=== PATIENT | female | born 1995 | race Caucasian/White ===

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

== ENCOUNTER 2017-03-02 00:07 | Emergency (ER) | payer OTHER ==
[2017-03-02 00:14] VITALS: BP 130/82; PULSE 89; RESP 18; TEMP 98.4
--- NOTE | 2017-03-02 00:26 | ED ---
General Adult HPI - General Chief complaint: Recheck/Abnormal Lab/Rx Stated complaint: Test Time Seen by Provider: 03/02/17 00:15 Source: patient, RN notes reviewed Mode of arrival: ambulatory Limitations: no limitations - History of Present Illness Initial comments: Patient 21-year-old female who presents emergency room today with chief complaint of possible . Patient admits that she's been having increased urinary frequency. Does admit some pressure type feeling in her lower abdomen. States is not painful. Does admit that she's had some clear vaginal discharge. Patient denies any bleeding. Denies any other associated symptoms or complaints. Patient denies any recent fever, chills, shortness of breath, chest pain, back pain, abdominal pain, nausea or vomiting, numbness or tingling, hematuria, constipation or diarrhea, headaches or visual changes, or any other complaints. - Related Data Home Medications Medication Instructions Recorded Confirmed Cetirizine HCl [Zyrtec] 10 mg PO DAILY 01/19/15 09/21/16 Albuterol Inhaler [Ventolin Hfa 1 - 2 puff INHALATION RT-Q6H PRN 09/20/16 Inhaler] Lisdexamfetamine Dimesylate 30 mg PO QAM 09/20/16 09/21/16 [Vyvanse] [place]-Linyah 1 tab PO DAILY 09/20/16 09/21/16 Previous Rx's Medication Instructions Recorded DULoxetine HCL [Cymbalta] 60 mg PO DAILY #30 capsule. 09/24/16 Nicotine 7Mg/24Hr Patch [Habitrol] 1 patch TRANSDERM DAILY #14 patch 09/24/16 OXcarbazepine [Trileptal] 300 mg PO BID #60 tab 09/24/16 Nitrofurantoin Monohyd/M-Cryst 100 mg PO Q12HR #14 cap 03/02/17 [Macrobid] Allergies Allergy/AdvReac Type Severity Reaction Status Date / Time aspirin Allergy Unknown Verified 03/02/17 00:13 Review of Systems ROS Statement: Those systems with pertinent positive or pertinent negative responses have been documented in the HPI. ROS Other: All systems not noted in ROS Statement are negative. Past Medical History Past Medical History: No Reported History, Asthma History of Any Multi-Drug Resistant Organisms: None Reported Past Surgical History: No Surgical Hx Reported Additional Past Surgical History / Comment(s): SPIDER BITE/ABSCESS DRAINED Past Psychological History: ADD/ADHD, Anxiety, Bipolar, Depression Smoking Status: Current every day smoker Past Alcohol Use History: Rare Past Drug Use History: Marijuana General Exam - General Exam Comments Initial Comments: General: The patient is awake and alert, in no distress, and does not appear acutely ill. Eye: Pupils are equal, round and reactive to light, extra-ocular movements are intact. No nystagmus. There is normal conjunctiva bilaterally. No signs of icterus. Ears, nose, mouth and throat: There are moist mucous membranes and no oral lesions. Neck: The neck is supple, there is no tenderness or JVD. Cardiovascular: There is a regular rate and rhythm. No murmur, rub or gallop is appreciated. Respiratory: Lungs are clear to auscultation, respirations are non-labored, breath sounds are equal. No wheezes, stridor, rales, or rhonchi. Gastrointestinal: Soft, non-distended, non-tender abdomen without masses or organomegaly noted. There is no rebound or guarding present. No CVA tenderness. Bowel sounds are unremarkable. Musculoskeletal: Normal ROM, no tenderness. Strength 5/5. Sensation intact. Pulses equal bilaterally 2+. Neurological: A&O x 3. CN II-XII intact, There are no obvious motor or sensory deficits. Coordination appears grossly intact. Speech is normal. Skin: Skin is warm and dry and no rashes or lesions are noted. Psychiatric: Cooperative, appropriate mood & affect, normal judgment. Limitations: no limitations Course Vital Signs 03/02/17 00:10 Temperature 98.4 F Pulse Rate 89 Respiratory 18 Rate Blood Pressure 130/82 O2 Sat by Pulse 99 Oximetry Medical Decision Making - Medical Decision Making Patient's urinalysis reviewed negative test. Patient's UA does show evidence for infection. She is symptomatic increased urinary frequency. Results were discussed with the patient. Culture is pending. Will be started on antibiotic of Macrobid. Advised to follow-up family doctor over the next 2 days if symptoms are not improved or return here to emergency room if any symptoms increase or worsen. Patient states understanding and is in agreement. - Lab Data Lab Results 03/02/17 03/02/17 Range/Units 00:14 00:14 Urine Color Colorless Urine Appearance Cloudy H (Clear) Urine pH 7.0 (5.0-8.0) Ur Specific Bridger 1.004 (1.001-1.035) Urine Protein Negative (Negative) Urine Glucose (UA) Negative (Negative) Urine Ketones Negative (Negative) Urine Blood Negative (Negative) Urine Nitrite Negative (Negative) Urine Bilirubin Negative (Negative) Urine Urobilinogen <2.0 (<2.0) mg/dL Ur Leukocyte Esterase Small H (Negative) Urine RBC 1 (0-5) /hpf Urine WBC 10 H (0-5) /hpf Ur Squamous Epith Cells 6 H (0-4) /hpf Amorphous Sediment Occasional H (None) /hpf Urine Bacteria Rare H (None) /hpf Urine HCG, Qual Not Detected (Not Detectd) Disposition Clinical Impression: UTI (urinary tract infection) Disposition: HOME SELF-CARE Condition: Good Instructions: Urinary Tract Infection in Women (ED) Additional Instructions: Please use medication as discussed. Please follow-up with family doctor in the next 2 days of symptoms have not improved. Please return to emergency room if the symptoms increase or worsen or for any other concerns. Prescriptions: Nitrofurantoin Monohyd/M-Cryst [Macrobid] 100 mg PO Q12HR #14 cap Referrals: Luciano Brewster MD [Primary Care Provider] - 1-2 days Time of Disposition: 01:01
[2017-03-02 00:44] LABS: Amorphous Sediment,Urine Occasional /hpf; Appearance,Urine Cloudy (Clear); Bacteria,Urine Rare /hpf; Bilirubin,Urine Negative (Negative); Glucose,Urine (UA) Negative (Negative); Ketones,Urine Negative (Negative); Leukocyte Esterase,Urine Small (Negative); Nitrite,Urine Negative (Negative); Particle Count 4248; Protein,Urine Negative (Negative); RBC,Urine 1 /hpf (0-5); Specific Gravity,Urine 1.004 (1.001-1.035); Squamous Epithelial Cell,Urine 6 /hpf (0-4); UA Billing (MACRO vs. MICRO) MICRO; Urobilinogen,Urine <2.0 mg/dL (<2.0); WBC,Urine 10 /hpf (0-5)
[2017-03-02] MEDS ORDERED: NITROFURANTOIN MONOHYD/M-CRYST 100 MG CAP PO STA (00:58)
== END 2017-03-02 01:05 | disposition home or self-care (01) ==
LOC: EC 00:07
DX: N39.0 Urinary tract infection, site not specified (principal); Z32.02 Encounter for pregnancy test, result negative; F90.9 Attention-deficit hyperactivity disorder, unspecified type; F17.200 Nicotine dependence, unspecified, uncomplicated; Z79.899 Other long term (current) drug therapy; Z79.3 Long term (current) use of hormonal contraceptives; Z88.6 Allergy status to analgesic agent
CPT/HCPCS: 81001; 81025; 87086; 99281

== ENCOUNTER → 2017-07-25 | Outpatient (CLI) | payer OTHER ==
--- NOTE | 2017-07-25 15:20 | XR ---
EXAMINATION TYPE: XR thoracic spine complete DATE OF EXAM: 07/25/2017 COMPARISON: NONE HISTORY: Back pain Alignment is anatomic. There is no compression deformities. Vertebral body height and disc interspa gracie are maintained. Slight curvature the spine. IMPRESSION: 1. No acute abnormality.
== END | disposition home or self-care (01) ==
LOC: RADXRMAIN 14:48
PROVIDERS: ATTEND Family Medicine
DX: M54.6 Pain in thoracic spine (principal)
CPT/HCPCS: 72072

== ENCOUNTER 2017-09-30 11:03 | Emergency (ER) | payer OTHER ==
--- NOTE | 2017-09-30 12:16 | ED ---
Fall HPI - General Chief Complaint: Fall Stated Complaint: left knee injury from fall, back pain Time Seen by Provider: 09/30/17 11:59 Source: patient, RN notes reviewed, old records reviewed Mode of arrival: ambulatory - History of Present Illness Initial Comments: This patient is a 22-year-old feel presents emergency room today chief complaint of left knee pain and lower back pain after she fell going down the stairs while going to work today. She reports she initially fell off her bed and hurt her lower back. She reports she slipped. She states that when she was rushing to get to work she slipped down approximately 2 stairs and hit her left knee. She's had previous surgery on this knee before. She also complains of having some acid reflux pain. She states that she feels mildly nauseated has a burning sensation. The patient arrives and examined her she was drinking a large coffee. I discussed with her the cough is in a more contributed to having acid reflux. She denies a specific abdominal pain, chest pain, shortness of breath, vomiting episodes, changes in bowel habits, numbness or tingling in her legs, headache. - Related Data Home Medications Medication Instructions Recorded Confirmed Cetirizine HCl [Zyrtec] 10 mg PO DAILY 01/19/15 09/21/16 Albuterol Inhaler [Ventolin Hfa 1 - 2 puff INHALATION RT-Q6H PRN 09/20/16 Inhaler] Lisdexamfetamine Dimesylate 30 mg PO QAM 09/20/16 09/21/16 [Vyvanse] [place]-Linyah 1 tab PO DAILY 09/20/16 09/21/16 Previous Rx's Medication Instructions Recorded DULoxetine HCL [Cymbalta] 60 mg PO DAILY #30 capsule. 09/24/16 Nicotine 7Mg/24Hr Patch [Habitrol] 1 patch TRANSDERM DAILY #14 patch 09/24/16 OXcarbazepine [Trileptal] 300 mg PO BID #60 tab 09/24/16 Nitrofurantoin Monohyd/M-Cryst 100 mg PO Q12HR #14 cap 03/02/17 [Macrobid] Naproxen 500 mg PO BID #20 tablet 09/30/17 Omeprazole 20 mg PO BID #20 tablet. 09/30/17 Allergies Allergy/AdvReac Type Severity Reaction Status Date / Time aspirin Allergy Unknown Verified 09/30/17 11:48 Review of Systems ROS Statement: Those systems with pertinent positive or pertinent negative responses have been documented in the HPI. ROS Other: All systems not noted in ROS Statement are negative. Past Medical History Past Medical History: Asthma, GERD/Reflux History of Any Multi-Drug Resistant Organisms: None Reported Past Surgical History: No Surgical Hx Reported, Orthopedic Surgery Additional Past Surgical History / Comment(s): SPIDER BITE/ABSCESS DRAINED, left leg lamonte,pins Past Psychological History: ADD/ADHD, Anxiety, Bipolar, Depression Smoking Status: Current every day smoker Past Alcohol Use History: Rare Past Drug Use History: Marijuana General Exam - General Exam Comments Initial Comments: This patient is a 22-year-old female. No distress. Limitations: no limitations General appearance: alert, in no apparent distress Head exam: Present: atraumatic, normocephalic, normal inspection Eye exam: Present: normal appearance, PERRL, EOMI. Absent: scleral icterus, conjunctival injection, periorbital swelling ENT exam: Present: normal exam Neck exam: Present: normal inspection. Absent: tenderness, meningismus, lymphadenopathy Respiratory exam: Present: normal lung sounds bilaterally. Absent: respiratory distress, wheezes, rales, rhonchi, stridor Cardiovascular Exam: Present: regular rate, normal rhythm, normal heart sounds. Absent: systolic murmur, diastolic murmur, rubs, gallop, clicks GI/Abdominal exam: Present: soft, normal bowel sounds. Absent: distended, tenderness, guarding, rebound, rigid Extremities exam: Present: normal inspection, full ROM, normal capillary refill. Absent: tenderness, pedal edema, joint swelling, calf tenderness Left Upper Leg exam: Present: normal inspection, full ROM Knee exam: Present: normal inspection (Patient has well-healed previous scars from previous surgery.), full ROM Lower Leg exam: Present: normal inspection, full ROM Ankle exam: Present: normal inspection, full ROM Foot/Toe exam: Present: normal inspection, full ROM Neurovascular tendon exam: Present: no vascular compromise Gait: observed and normal Back exam: Present: normal inspection Neurological exam: Present: alert, oriented X3, CN II-XII intact Psychiatric exam: Present: normal affect Skin exam: Present: warm, dry, intact, normal color. Absent: rash Course Vital Signs 09/30/17 11:44 Temperature 98.0 F Pulse Rate 91 Respiratory 18 Rate Blood Pressure 109/72 O2 Sat by Pulse 99 Oximetry Medical Decision Making - Medical Decision Making 22-year-old female presents emergency department today chief complaint of left knee pain after falls off some minor lower back pain. Just complains of acid reflux-like symptoms for the past week. She did arrive drinking coffee. Discussed that supportive and drink with as reflux. She has full range motion of the knee. Patella appears normal alignment and full range of motion. No trauma or bruising or dislocations. At this time patient's x-ray show evidence of a previous surgery within the femur. There is some minor high riding patella to correlate for patellar tendon injury. It does appear to be intact at this time. Patient is given an Clem wrap, discharged with crutches. Also treated with omeprazole for GERD. I discussed that she needs to follow-up with orthopedic in a primary care provider. All questions were answered and return parameters were discussed. - Radiology Data Radiology results: report reviewed There is no acute fracture dislocation of the left knee. Note is made of patella altered. Evaluation is recommended for patellar quadriceps injury with this knee pain. Disposition Clinical Impression: GERD (gastroesophageal reflux disease), Fall, Back pain, Left knee sprain Disposition: HOME SELF-CARE Condition: Good Instructions: Gastroesophageal Reflux Disease (ED), Diet for Stomach Ulcers and Gastritis (ED), Knee Sprain (ED) Additional Instructions: Patient advised to rest, apply ice over the leg. Watch her diet in regards to acid and take coffee and pop intake due to acid reflux. Patient should take the medications as prescribed. Use the crutches. Follow-up with orthopedic if symptoms continue to worsen on the leg. Prescriptions: Naproxen 500 mg PO BID #20 tablet Omeprazole 20 mg PO BID #20 tablet.dr Referrals: Luciano Brewster MD [Primary Care Provider] - 1-2 days Edilberto Walter MD [STAFF PHYSICIAN] - 1-2 days Time of Disposition: 13:06
--- NOTE | 2017-09-30 12:47 | XR ---
EXAMINATION TYPE: XR knee complete LT DATE OF EXAM: 09/30/2017 CLINICAL HISTORY: Knee pain after fall TECHNIQUE: Three views of the left knee are obtained. COMPARISON: None. FINDINGS: Femoral intramedullary lamonte and 2 transcortical screws are noted of the distal femur. There is no acute fracture/dislocation evident in left knee. The tri-compartment joint spaces appear withi n normal limits. The overlying soft tissue appears unremarkable. Incidental note is made of a barbara alicea IMPRESSION: 1. There is no acute fracture or dislocation in the left knee. 2. Note is made of patella kalina. Evaluation is recommended for patellar quadriceps injury in this pat ient with knee pain.
[2017-09-30 13:25] VITALS: BP 117/58; PULSE 87; RESP 16; TEMP 98
== END 2017-09-30 13:24 | disposition home or self-care (01) ==
LOC: EC 11:03
DX: S83.92XA Sprain of unspecified site of left knee, initial encounter (principal); M54.5 Low back pain; K21.9 Gastro-esophageal reflux disease without esophagitis; F90.9 Attention-deficit hyperactivity disorder, unspecified type; F17.200 Nicotine dependence, unspecified, uncomplicated; Z98.890 Other specified postprocedural states; Z79.3 Long term (current) use of hormonal contraceptives; Z79.899 Other long term (current) drug therapy; Z88.6 Allergy status to analgesic agent; W10.9XXA Fall (on) (from) unspecified stairs and steps, initial encounter
CPT/HCPCS: 99284

== ENCOUNTER 2017-10-24 16:50 | Emergency (ER) | payer OTHER ==
[2017-10-24 17:02] VITALS: BP 139/80; PULSE 86; RESP 18; TEMP 98.3
--- NOTE | 2017-10-24 17:22 | ED ---
Lower Extremity Injury HPI - General Chief Complaint: Extremity Injury, Lower Stated Complaint: Fall/Knee Pain Time Seen by Provider: 10/24/17 17:00 Source: patient, RN notes reviewed Mode of arrival: ambulatory Limitations: no limitations - History of Present Illness Initial Comments: This is a 22-year-old female who presents to the emergency department with chief complaint of right knee injury. Patient states that this morning she woke up and rolled off of her bed. She states that her right knee hit the door. She is able to bear weight and ambulate but states that she does so by limping. States that pain is localized to the lateral aspect of right knee. Denies any other injury or trauma. Denies fever, chills, chest pain, shortness of breath, abdominal pain, nausea or vomiting, numbness or tingling, headache or vision changes. - Related Data Home Medications Medication Instructions Recorded Confirmed Cetirizine HCl [Zyrtec] 10 mg PO DAILY 01/19/15 09/21/16 Albuterol Inhaler [Ventolin Hfa 1 - 2 puff INHALATION RT-Q6H PRN 09/20/16 Inhaler] Lisdexamfetamine Dimesylate 30 mg PO QAM 09/20/16 09/21/16 [Vyvanse] [place]-Linyah 1 tab PO DAILY 09/20/16 09/21/16 Previous Rx's Medication Instructions Recorded DULoxetine HCL [Cymbalta] 60 mg PO DAILY #30 capsule. 09/24/16 Nicotine 7Mg/24Hr Patch [Habitrol] 1 patch TRANSDERM DAILY #14 patch 09/24/16 OXcarbazepine [Trileptal] 300 mg PO BID #60 tab 09/24/16 Nitrofurantoin Monohyd/M-Cryst 100 mg PO Q12HR #14 cap 03/02/17 [Macrobid] Naproxen 500 mg PO BID #20 tablet 09/30/17 Omeprazole 20 mg PO BID #20 tablet. 09/30/17 Allergies Allergy/AdvReac Type Severity Reaction Status Date / Time aspirin Allergy Unknown Verified 10/24/17 17:02 Review of Systems ROS Statement: Those systems with pertinent positive or pertinent negative responses have been documented in the HPI. ROS Other: All systems not noted in ROS Statement are negative. Past Medical History Past Medical History: Asthma, GERD/Reflux History of Any Multi-Drug Resistant Organisms: None Reported Past Surgical History: No Surgical Hx Reported, Orthopedic Surgery Additional Past Surgical History / Comment(s): SPIDER BITE/ABSCESS DRAINED, left leg lamonte,pins Past Psychological History: ADD/ADHD, Anxiety, Bipolar, Depression Smoking Status: Current every day smoker Past Alcohol Use History: Rare Past Drug Use History: Marijuana General Exam - General Exam Comments Initial Comments: General: Awake and alert, well-developed; in no apparent distress. HEENT: Head atraumatic, normocephalic. Pupils are equal, round and reactive to light. Extraocular movements intact. Oropharynx moist without erythema or exudate. Neck: Supple. Normal ROM. Cardiovascular: Regular rate and rhythm. No murmurs, rubs or gallops. Chest symmetrical. Respiratory: Lungs clear to auscultation bilaterally. No wheezes, rales or rhonchi. Normal respiratory effort with no use of accessory muscles. Musculoskeletal: Normal range of motion of the right knee. There is bruising noted to the lateral aspect overlying the right patella. No erythema or soft tissue swelling. Patient is ambulating with a limp. Sensation is intact. Pedal pulses are 2+ equal and palpable bilaterally. Skin: [place], warm and dry without rashes. Neurological: Alert and oriented x3. CN II-XII grossly intact. Speech is fluent and answers are appropriate. No focal neuro deficits. Psychiatric: Normal mood and affect. No overt signs of depression or anxiety noted. Limitations: no limitations Course Vital Signs 10/24/17 16:57 Temperature 98.3 F Pulse Rate 86 Respiratory 18 Rate Blood Pressure 139/80 O2 Sat by Pulse 99 Oximetry Medical Decision Making - Medical Decision Making This is a 22-year-old female who presents to the emergency department with chief complaint of right knee injury. X-ray of right knee revealed no evidence for an acute fracture or dislocation. She is able to bear weight and ambulate. Patient likely suffering from knee contusion. Recommended rest, ice and Tylenol or Motrin as needed. She is in no acute distress and will be discharged home. She is in agreement and voices understanding. All questions were answered. - Radiology Data Radiology results: report reviewed X-ray right knee findings: There is no fracture or malalignment. Soft tissues are unremarkable. Impression: No acute process. Disposition Clinical Impression: Contusion of knee Disposition: HOME SELF-CARE Condition: Good Instructions: Contusion in Adults (ED), Knee Pain (ED) Additional Instructions: Please rest, ice and take Tylenol or Motrin as needed. Please follow up with primary care provider within 1-2 days. Return to emergency department if symptoms should worsen or any concerns arise. Referrals: Luciano Brewster MD [Primary Care Provider] - 1-2 days Time of Disposition: 18:15
--- NOTE | 2017-10-24 17:46 | XR ---
PROCEDURE: XR knee complete RT - 3 views DATE AND TIME: 10/24/2017 5:27 PM REFERRING PHYSICIAN: Libia Fischer CLINICAL INDICATION: PHH, Pain TECHNIQUE: Department protocol. COMPARISON: None FINDINGS: There is no fracture or malalignment. The soft tissues are unremarkable. IMPRESSION: NO ACUTE PROCESS.
== END 2017-10-24 18:05 | disposition home or self-care (01) ==
LOC: EC 16:50
DX: S80.01XA Contusion of right knee, initial encounter (principal); F90.9 Attention-deficit hyperactivity disorder, unspecified type; F31.9 Bipolar disorder, unspecified; F41.9 Anxiety disorder, unspecified; F17.200 Nicotine dependence, unspecified, uncomplicated; Z79.899 Other long term (current) drug therapy; Z79.3 Long term (current) use of hormonal contraceptives; Z88.6 Allergy status to analgesic agent; W06.XXXA Fall from bed, initial encounter
CPT/HCPCS: 99283

== ENCOUNTER 2018-03-20 04:18 | Emergency (ER) | payer OTHER ==
[2018-03-20 04:34] VITALS: TEMP 98.2
--- NOTE | 2018-03-20 04:39 | ED ---
General Adult HPI <Justice Magdaleno - Last Filed: 03/20/18 09:37> - General Source: patient Mode of arrival: ambulatory Limitations: no limitations <Rosaline Garrison - Last Filed: 03/23/18 03:36> - General Chief complaint: Psychiatric Symptoms Stated complaint: Mental Health Time Seen by Provider: 03/20/18 04:38 - History of Present Illness Initial comments: Alize is a 22-year-old female with a significant psychiatric history on multiple medications which she reports she's been compliant with. Patient presents to the emergency department today complaining of depression and feeling like she needs a psychiatric evaluation. Patient reports that 3 years ago she lost her aunt who she is very close with, she states that she's been thinking about her aunt a lot lately and it made her very depressed. Patient states that she has had a passive thoughts of jumping off a bridge into the river, however she did walk to the ER from home and did cross the bridge and had the restrained not jumped into the river. Not want to be suicidal, she wants to live and wants to be a good Angel for her nieces. She does follow with [facility], she is compliant with her medications though she reports that she has missed one day of medications because she didn't have them with her (Rosaline Garrison) - Related Data Home Medications Medication Instructions Recorded Confirmed Cetirizine HCl [Zyrtec] 10 mg PO DAILY 01/19/15 03/20/18 Albuterol Inhaler [Ventolin Hfa 1 - 2 puff INHALATION RT-Q6H PRN 09/20/16 Inhaler] Acyclovir 400 mg PO Q8H PRN 03/20/18 03/20/18 Escitalopram Oxalate [Lexapro] 10 mg PO DAILY 03/20/18 03/20/18 Lisdexamfetamine Dimesylate 50 mg PO QAM 03/20/18 03/20/18 [Vyvanse] hydrOXYzine PAMOATE [Vistaril] 25 mg PO BID 03/20/18 03/20/18 Previous Rx's Medication Instructions Recorded OXcarbazepine [Trileptal] 300 mg PO BID #60 tab 09/24/16 Allergies Allergy/AdvReac Type Severity Reaction Status Date / Time aspirin AdvReac headache Verified 03/20/18 08:03 Review of Systems ROS Other: All systems not noted in ROS Statement are negative. <Justice Magdaleno - Last Filed: 03/20/18 09:37> ROS Other: All systems not noted in ROS Statement are negative. <Rosaline Garrison P - Last Filed: 03/23/18 03:36> ROS Statement: Those systems with pertinent positive or pertinent negative responses have been documented in the HPI. Past Medical History Past Medical History: Asthma, GERD/Reflux History of Any Multi-Drug Resistant Organisms: None Reported Past Surgical History: No Surgical Hx Reported, Orthopedic Surgery Additional Past Surgical History / Comment(s): SPIDER BITE/ABSCESS DRAINED, left leg lamonte,pins Past Psychological History: ADD/ADHD, Anxiety, Bipolar, Depression Smoking Status: Current every day smoker Past Alcohol Use History: None Reported Past Drug Use History: Marijuana <Rosaline Garrison P - Last Filed: 03/23/18 03:36> General Exam Limitations: no limitations General appearance: alert, in no apparent distress Head exam: Present: atraumatic, normocephalic Eye exam: Present: PERRL Neck exam: Present: full ROM Respiratory exam: Absent: respiratory distress Cardiovascular Exam: Present: regular rate GI/Abdominal exam: Present: soft. Absent: distended Rectal exam: Present: deferred Extremities exam: Present: full ROM Back exam: Present: full ROM Neurological exam: Present: alert, oriented X3, normal gait Psychiatric exam: Present: depressed, anxious, suicidal ideation. Absent: agitated, manic, homicidal ideation Skin exam: Present: warm, dry, other (Multiple superficial laceration to the left anterior wrist) <Rosaline Garrison P - Last Filed: 03/23/18 03:36> Vital Signs 03/20/18 03/20/18 03/20/18 04:29 10:01 10:02 Temperature 98.2 F 98.2 F 98.2 F Pulse Rate 95 68 68 Respiratory 18 16 16 Rate Blood Pressure 118/80 94/54 94/54 O2 Sat by Pulse 99 100 99 Oximetry Medical Decision Making <Justice Magdaleno - Last Filed: 03/20/18 09:37> <Rosaline Garrison P - Last Filed: 03/23/18 03:36> - Medical Decision Making Patient has an outpatient plan put in place and is in agreement with following that plan. (Justice Magdaleno) Patient was seen and evaluated, patient medically cleared for evaluation by mental health nurse Mental health the nurse at bedside to evaluate the patient, plan to contact the [facility] mobile crisis unit to evaluate the patient and make further plan Patient care was signed out to Dr. Magdaleno who will follow-up on the mental health professional's recommendations for this patient. If they are able to contract for safety and have a follow-up plan for the patient I do believe the patient is stable for discharge home however if they're unable to the patient is agreeable to admission. (Rosaline Garrison) - Lab Data Lab Results 03/20/18 03/20/18 Range/Units 04:19 04:19 Urine Color Light Yellow Urine Appearance Cloudy H (Clear) Urine pH 6.5 (5.0-8.0) Ur Specific Ambrose 1.005 (1.001-1.035) Urine Protein Negative (Negative) Urine Glucose (UA) Negative (Negative) Urine Ketones Negative (Negative) Urine Blood Negative (Negative) Urine Nitrite Negative (Negative) Urine Bilirubin Negative (Negative) Urine Urobilinogen <2.0 (<2.0) mg/dL Ur Leukocyte Esterase Large H (Negative) Urine RBC 1 (0-5) /hpf Urine WBC 43 H (0-5) /hpf Ur Squamous Epith Cells 5 H (0-4) /hpf Urine Bacteria Many H (None) /hpf Urine HCG, Qual Not Detected (Not Detectd) Urine Opiates Screen Not Detected (NotDetected) Ur Oxycodone Screen Not Detected (NotDetected) Urine Methadone Screen Not Detected (NotDetected) Ur Propoxyphene Screen Not Detected (NotDetected) Ur Barbiturates Screen Not Detected (NotDetected) U Tricyclic Antidepress Not Detected (NotDetected) Ur Phencyclidine Scrn Not Detected (NotDetected) Ur Amphetamines Screen Not Detected (NotDetected) U Methamphetamines Scrn Not Detected (NotDetected) U Benzodiazepines Scrn Not Detected (NotDetected) Urine Cocaine Screen Not Detected (NotDetected) U Marijuana (THC) Screen Not Detected (NotDetected) Disposition Time of Disposition: 09:37 <Justice Magdaleno - Last Filed: 03/20/18 09:37> Is patient prescribed a controlled substance at d/c from ED?: No <Rosaline Garrison - Last Filed: 03/23/18 03:36> Clinical Impression: Situational depression Disposition: HOME SELF-CARE Instructions: Depression (ED) Referrals: Luciano Brewster MD [Primary Care Provider] - 1-2 days
[2018-03-20 05:05] LABS: Appearance,Urine Cloudy (Clear); Bacteria,Urine Many /hpf; Bilirubin,Urine Negative (Negative); Blood,Urine Negative (Negative); Color,Urine Light Yellow; Glucose,Urine (UA) Negative (Negative); Ketones,Urine Negative (Negative); Leukocyte Esterase,Urine Large (Negative); Nitrite,Urine Negative (Negative); PH, Urine 6.5 (5.0-8.0); Protein,Urine Negative (Negative); RBC,Urine 1 /hpf (0-5); Specific Gravity,Urine 1.005 (1.001-1.035); Squamous Epithelial Cell,Urine 5 /hpf (0-4); Urobilinogen,Urine <2.0 mg/dL (<2.0); WBC,Urine 43 /hpf (0-5)
[2018-03-20 05:10] LABS: Amphetamine Screen,Urine Not Detected (NotDetected); Barbiturate Screen,Urine Not Detected (NotDetected); Benzodiazepines Screen,Urine Not Detected (NotDetected); Cocaine Screen,Urine Not Detected (NotDetected); Methadone Screen, Urine Not Detected (NotDetected); Opiate Screen,Urine Not Detected (NotDetected); Oxycodone Screen, Urine Not Detected (NotDetected); Phencyclidine Screen,Urine Not Detected (NotDetected); Tricyclic Antidepressant,Urine Not Detected (NotDetected); Urn Cannabinoid Scrn Not Detected (NotDetected)
[2018-03-20 10:02] VITALS: BP 94/54; PULSE 68; RESP 16
== END 2018-03-20 10:00 | disposition home or self-care (01) ==
LOC: EC 04:18
DX: S61.512A Laceration without foreign body of left wrist, initial encounter (principal); F43.21 Adjustment disorder with depressed mood; F41.9 Anxiety disorder, unspecified; R45.851 Suicidal ideations; J45.909 Unspecified asthma, uncomplicated; F90.9 Attention-deficit hyperactivity disorder, unspecified type; F31.9 Bipolar disorder, unspecified; F17.200 Nicotine dependence, unspecified, uncomplicated; Z79.899 Other long term (current) drug therapy; Z88.6 Allergy status to analgesic agent; X78.1XXA Intentional self-harm by knife, initial encounter
CPT/HCPCS: 80306; 81001; 81025; 82075; 99284

== ENCOUNTER 2018-04-28 21:17 | Emergency (ER) | payer OTHER ==
[2018-04-28 21:32] VITALS: BP 126/76; PULSE 103; RESP 18; TEMP 98.7
--- NOTE | 2018-04-28 22:33 | ED ---
Lower Extremity Injury HPI - General Chief Complaint: Extremity Injury, Lower Stated Complaint: Knee Injury Time Seen by Provider: 04/28/18 21:39 Source: patient Mode of arrival: ambulatory Limitations: no limitations - History of Present Illness Initial Comments: 22-year-old female past medical history of previous left quadriceps tendon injury. Who presents today for chief complaint of left knee pain. Patient states that earlier this afternoon she was "horsing around" with her friends when she jumped off a bed she came down felt as though she twisted her left knee. Patient admitted to pain in the left anterior knee. Patient was able to ambulate following the incident, fully weightbearing. Patient denies any numbness, tingling, loss of sensation or muscle weakness of the left lower extremity. she denies any dislocation including posterior dislocation of the left knee. She denies falling hitting her head, loss consciousness or injury to any other extremity. Remainder of ROS negative - Related Data Home Medications Medication Instructions Recorded Confirmed Cetirizine HCl [Zyrtec] 10 mg PO DAILY 01/19/15 03/20/18 Albuterol Inhaler [Ventolin Hfa 1 - 2 puff INHALATION RT-Q6H PRN 09/20/16 Inhaler] Acyclovir 400 mg PO Q8H PRN 03/20/18 03/20/18 Escitalopram Oxalate [Lexapro] 10 mg PO DAILY 03/20/18 03/20/18 Lisdexamfetamine Dimesylate 50 mg PO QAM 03/20/18 03/20/18 [Vyvanse] hydrOXYzine PAMOATE [Vistaril] 25 mg PO BID 03/20/18 03/20/18 Previous Rx's Medication Instructions Recorded OXcarbazepine [Trileptal] 300 mg PO BID #60 tab 09/24/16 Acetaminophen Tab [Tylenol Tab] 500 mg PO Q6H PRN 5 Days #20 tablet 04/28/18 Allergies Allergy/AdvReac Type Severity Reaction Status Date / Time aspirin AdvReac headache Verified 04/28/18 21:32 Review of Systems ROS Statement: Those systems with pertinent positive or pertinent negative responses have been documented in the HPI. ROS Other: All systems not noted in ROS Statement are negative. Constitutional: Denies: fever, chills, night sweats Eyes: Denies: eye pain ENT: Denies: throat pain Respiratory: Denies: cough, dyspnea Cardiovascular: Denies: chest pain, palpitations, dyspnea on exertion Endocrine: Denies: fatigue Gastrointestinal: Denies: abdominal pain, nausea, vomiting, diarrhea, constipation, hematemesis, melena, hematochezia Genitourinary: Denies: urgency, dysuria, frequency, hematuria Musculoskeletal: Reports: arthralgia. Denies: back pain, joint swelling, myalgia Skin: Denies: rash, lesions, change in color Neurological: Denies: weakness, numbness, paresthesias, confusion, abnormal gait Past Medical History Past Medical History: Asthma, GERD/Reflux History of Any Multi-Drug Resistant Organisms: None Reported Past Surgical History: No Surgical Hx Reported, Orthopedic Surgery Additional Past Surgical History / Comment(s): SPIDER BITE/ABSCESS DRAINED, left leg lamonte,pins Past Psychological History: ADD/ADHD, Anxiety, Bipolar, Depression Smoking Status: Current every day smoker Past Alcohol Use History: Occasional Past Drug Use History: Marijuana General Exam - General Exam Comments Initial Comments: General: The patient is awake and alert, in no distress, and does not appear acutely ill. Eye: Pupils are equal, round and reactive to light, extra-ocular movements are intact. No nystagmus. There is normal conjunctiva bilaterally. No signs of icterus. Cardiovascular: There is a regular rate and rhythm. No murmur, rub or gallop is appreciated. Respiratory: Lungs are clear to auscultation, respirations are non-labored, breath sounds are equal. No wheezes, stridor, rales, or rhonchi. Musculoskeletal: No soft tissue swelling, ecchymosis of the knees b/l. Appear equally b/l. Full ROM at the knees bilaterally with flexion and extension, full range of motion at the hips bilaterally with rotation, forward flexion and extension. Extensor mechanism intact of the legs b/l. Mild tenderness to palpation over the anterior knee/superior left knee. No pain to palpation of the left. Strength 5/5 of the hips and knees b/l. Sensation intact of the LE equally b/l. DP pulses equal bilaterally 2+. LE warm to touch. No evidence of foot drop. No signs of laxity with anterior/posterior drawer testing. No laxity upon varus and valgus testing. No crepitus noted of knees b/l. Neurological: A&O x 3. CN II-XII intact, There are no obvious motor or sensory deficits. Coordination appears grossly intact. Speech is normal. Skin: Skin is warm and dry and no rashes or lesions are noted. Psychiatric: Cooperative, appropriate mood & affect, normal judgment. Limitations: no limitations Course Vital Signs 04/28/18 21:30 Temperature 98.7 F Pulse Rate 103 H Respiratory 18 Rate Blood Pressure 126/76 O2 Sat by Pulse 99 Oximetry Medical Decision Making - Medical Decision Making XR (-) Physical examination unremarkable. At this time I have low suspicion of ligamentous injury including ACL and MCL and LCL or PCL however this cannot be excluded with XR. PT was instructed to follow-up with orthopedic surgery if symptoms persist for greater than 1 week. Pt given RICE instruction and to take ibuprofen and tylenol for pain mgmt as needed. Clem bandage applied. Patient agreed plan. Patient was discharged in stable condition after discussing the case in detail with Dr. Valdez. Disposition Clinical Impression: Left knee pain Disposition: HOME SELF-CARE Condition: Good Instructions: Knee Pain (ED) Additional Instructions: Please use medication as discussed. Please follow-up with family doctor in the next 2 days of symptoms have not improved. If symptoms persist greater than 1 week please follow-up with orthopedic surgery. Please return to emergency room if the symptoms increase or worsen or for any other concerns. Prescriptions: Acetaminophen Tab [Tylenol Tab] 500 mg PO Q6H PRN 5 Days #20 tablet PRN Reason: Pain Is patient prescribed a controlled substance at d/c from ED?: No Referrals: Luciano Brewster MD [Primary Care Provider] - 1-2 days Devin Reyna DO [Doctor of Osteopathic Medicine] - 1-2 days Time of Disposition: 22:51
--- NOTE | 2018-04-28 22:38 | XR ---
EXAMINATION TYPE: XR knee complete LT DATE OF EXAM: 04/28/2018 COMPARISON: 09/30/2017 HISTORY: Knee pain TECHNIQUE: 3 views FINDINGS: There is no fracture nor dislocation. Joint spaces are normal. There is intramedullary lamonte in the left femur. IMPRESSION: Negative left knee exam.
== END 2018-04-28 23:03 | disposition home or self-care (01) ==
LOC: EC 21:17
DX: M25.562 Pain in left knee (principal); J45.909 Unspecified asthma, uncomplicated; F31.9 Bipolar disorder, unspecified; F90.9 Attention-deficit hyperactivity disorder, unspecified type; F41.9 Anxiety disorder, unspecified; F17.200 Nicotine dependence, unspecified, uncomplicated; Z79.899 Other long term (current) drug therapy; Z88.6 Allergy status to analgesic agent
CPT/HCPCS: 99283

== ENCOUNTER 2018-11-14 10:45 | Emergency (ER) | payer OTHER ==
[2018-11-14 10:50] VITALS: RESP 18
--- NOTE | 2018-11-14 11:08 | ED ---
URI HPI - General Chief Complaint: Upper Respiratory Infection Stated Complaint: sore throat Time Seen by Provider: 11/14/18 10:49 Source: patient Mode of arrival: ambulatory Limitations: no limitations - History of Present Illness Initial Comments: 23-year-old female denies past medical history presenting today for chief complaint of cough 1 week. Patient states she has been coughing so hard it has caused her to develop a sore throat. Patient states is only alleviated with really cold or really hot water. Patient states she is taking [id number] cough syrup. She states she's had fevers on and off. She states her mother has similar symptoms. Patient states she is concerned of pneumonia. Patient is every day smoker. Patient denies vomiting diarrhea headache neck stiffness abdominal pain or any other concerns. Patient denies chest pain, hemoptysis, leg swelling, dyspnea, dyspnea on exertion. Remainder in ROS negative. Upon arrival patient appears well no signs of acute distress. Vital signs within acceptable limits. No signs of acute distress. - Related Data Home Medications Medication Instructions Recorded Confirmed Escitalopram Oxalate [Lexapro] 10 mg PO DAILY 03/20/18 11/14/18 hydrOXYzine PAMOATE [Vistaril] 50 mg PO HS 03/20/18 11/14/18 guaiFENesin-Coden 100-10MG/5ML 10 ml PO Q6H PRN 11/14/18 11/14/18 [Robitussin AC] Previous Rx's Medication Instructions Recorded OXcarbazepine [Trileptal] 300 mg PO BID #60 tab 09/24/16 Acetaminophen Tab [Tylenol Tab] 500 mg PO Q6H PRN 5 Days #20 tablet 04/28/18 guaiFENesin SYRUP 100MG/5ML 10 ml PO Q8H 5 Days #1 bottle 11/14/18 [Robitussin] Allergies Allergy/AdvReac Type Severity Reaction Status Date / Time aspirin AdvReac headache Verified 11/14/18 10:58 Milk Containing Products AdvReac Unknown Verified 11/14/18 10:58 [Dairy] nickel AdvReac Unknown Verified 11/14/18 10:58 Review of Systems ROS Statement: Those systems with pertinent positive or pertinent negative responses have been documented in the HPI. ROS Other: All systems not noted in ROS Statement are negative. Past Medical History Past Medical History: Asthma, GERD/Reflux, Seizure Disorder History of Any Multi-Drug Resistant Organisms: None Reported Past Surgical History: Orthopedic Surgery Additional Past Surgical History / Comment(s): SPIDER BITE/ABSCESS DRAINED, left leg lamonte,pins Past Psychological History: ADD/ADHD, Anxiety, Bipolar, Depression Smoking Status: Current every day smoker Past Alcohol Use History: Occasional Past Drug Use History: Marijuana General Exam - General Exam Comments Initial Comments: General: The patient is awake and alert, in no distress, and does not appear acutely ill. Eye: +3 mm pupils are equal, round and reactive to light, extra-ocular movements are intact. No nystagmus. There is normal conjunctiva bilaterally. No signs of icterus. No photophobia Ears, nose, mouth and throat: There are moist mucous membranes and no oral lesions. Oropharynx was not erythematous there is no tonsillar enlargement exudates or lesions. Uvula midline. Tympanic membranes are not erythematous or is no effusions bulging or retraction. No tenderness to palpation of the mastoid. No anterior cervical lymphadenopathy. Rhinorrhea, clear and bilateral nares. No tripoding, no drooling. Neck: The neck is supple, there is no tenderness or JVD. No nuchal rigidity negative Brudzinski and Kernig Cardiovascular: There is a regular rate and rhythm. No murmur, rub or gallop is appreciated. Respiratory: Lungs are clear to auscultation, respirations are non-labored, breath sounds are equal. No wheezes, stridor, rales, or rhonchi. No retractions or abdominal breathing. Productive cough noted. Clear phlegm. Gastrointestinal: Soft, non-distended, non-tender abdomen without masses or organomegaly noted. There is no rebound or guarding present. Bowel sounds are unremarkable. Musculoskeletal: Normal ROM, no tenderness. Strength 5/5. Sensation intact. Radial pulses equal bilaterally 2+. Neurological: A&O x 3. CN II-XII intact, There are no obvious motor or sensory deficits. Coordination appears grossly intact. Speech appears normal, no muffling. Skin: Skin is warm and dry and no rashes or lesions are noted. No extremity edema Psychiatric: Cooperative Limitations: no limitations Course Vital Signs 11/14/18 11/14/18 10:47 12:02 Temperature 97.7 F 98.2 F Pulse Rate 108 H 94 Respiratory 18 18 Rate Blood Pressure 121/78 124/67 O2 Sat by Pulse 98 97 Oximetry Medical Decision Making - Medical Decision Making 23-year-old female presenting today for chief complaint of cough/sore throat. Oropharynx examination unremarkable. Patient has no evidence of tonsillar enlargement or exudates. Uvula midline. No compressive symptoms. Patient has cough on exam, patient did cough up clear phlegm in the room. Chest x-ray negative for acute consolidation. Lungs clear to auscultation. Patient appears well nontoxic. Patient's history of fever. Concern for influenza. Patient returned positive for influenza A. Sharp testing negative. The same the Shyam patient's a dramatically as symptoms have been ongoing greater than 72 hours. Patient was requesting prescription for cough medication. Patient was prescribed Robitussin. Patient is agreeable plan of care as well as discharge. Denies questions at this time per patient was discharged appearing well after discussed the case with him provider Dr. Daniel. - Lab Data Lab Results 11/14/18 11/14/18 Range/Units 11:07 11:07 Influenza Type A RNA Detected H (Not Detectd) Influenza Type B (PCR) Not Detected (Not Detectd) Group A Strep Rapid Negative (Negative) Disposition Clinical Impression: Influenza A Disposition: HOME SELF-CARE Condition: Good Instructions (If sedation given, give patient instructions): Influenza (ED) Additional Instructions: Please use medication as discussed. Please follow-up with family doctor in the next 2 days of symptoms have not improved. Please return to emergency room if the symptoms increase or worsen or for any other concerns. Prescriptions: guaiFENesin SYRUP 100MG/5ML [Robitussin] 10 ml PO Q8H 5 Days #1 bottle Is patient prescribed a controlled substance at d/c from ED?: No Referrals: Mykel Ramos Jr, [Primary Care Provider] - 1-2 days Time of Disposition: 11:48
--- NOTE | 2018-11-14 11:22 | XR ---
EXAMINATION TYPE: XR chest 2V DATE OF EXAM: 11/14/2018 COMPARISON: NONE TECHNIQUE: PA and lateral views submitted. HISTORY: Cough and congestion FINDINGS: The lungs are clear and there is no pneumothorax, pleural effusion, or focal pneumonia. IMPRESSION: 1. No acute process.
[2018-11-14 12:03] VITALS: BP 124/67; PULSE 94; TEMP 98.2
== END 2018-11-14 12:03 | disposition home or self-care (01) ==
LOC: EC 10:45
DX: J10.1 Influenza due to other identified influenza virus with other respiratory manifestations (principal); J45.909 Unspecified asthma, uncomplicated; F41.9 Anxiety disorder, unspecified; F32.9 Major depressive disorder, single episode, unspecified; F17.200 Nicotine dependence, unspecified, uncomplicated; Z98.890 Other specified postprocedural states; Z79.899 Other long term (current) drug therapy; Z88.6 Allergy status to analgesic agent; Z91.011 Allergy to milk products; Z91.048 Other nonmedicinal substance allergy status
CPT/HCPCS: 71046; 87081; 87430; 87502; 99283

== ENCOUNTER 2019-02-10 02:56 | Emergency (ER) | payer OTHER ==
[2019-02-10] MEDS ORDERED: CEPHALEXIN 500MG STARTER PACK 4 CAP BTL PO STA (03:16)
[2019-02-10] MEDS ORDERED: SULFAMETH-TMP DS STARTER PACK 2 TAB BTL PO STA (03:16)
[2019-02-10] MEDS ORDERED: LIDOCAINE 1% INJ 10MG/ML (20 ML MDV) SQ ONE (03:16)
--- NOTE | 2019-02-10 03:19 | ED ---
Skin/Abscess/FB HPI - General Chief complaint: Skin/Abscess/Foreign Body Stated complaint: Growth on chest Time Seen by Provider: 02/10/19 03:10 Source: patient Mode of arrival: ambulatory - History of Present Illness Initial comments: Alize is a previously healthy 23-year-old female presents to ER today for evaluation of abscess on her chest. Patient reports that she's noted some redness and occasionally has draining from what she thought was large pimples between her breasts. Patient reports that over the past couple days she's noticed the swelling is gotten much worse and more painful. She's not anymore get any drainage out so she came to ER for evaluation. Patient is nondiabetic has no history of abscesses or MRSA infection that she is aware of. - Related Data Home Medications Medication Instructions Recorded Confirmed Escitalopram Oxalate [Lexapro] 10 mg PO DAILY 03/20/18 11/14/18 hydrOXYzine PAMOATE [Vistaril] 50 mg PO HS 03/20/18 11/14/18 guaiFENesin-Coden 100-10MG/5ML 10 ml PO Q6H PRN 11/14/18 11/14/18 [Robitussin AC] Previous Rx's Medication Instructions Recorded OXcarbazepine [Trileptal] 300 mg PO BID #60 tab 09/24/16 Acetaminophen Tab [Tylenol Tab] 500 mg PO Q6H PRN 5 Days #20 tablet 04/28/18 guaiFENesin SYRUP 100MG/5ML 10 ml PO Q8H 5 Days #1 bottle 11/14/18 [Robitussin] Cephalexin [Keflex] 500 mg PO Q6HR #28 cap 02/10/19 Cephalexin [Keflex] 500 mg PO Q6HR #28 cap 02/10/19 Sulfamethox-Tmp 800-160Mg [Bactrim 1 tab PO Q12HR #14 tab 02/10/19 DS 800-160 mg] Sulfamethox-Tmp 800-160Mg [Bactrim 1 tab PO Q12HR #14 tab 02/10/19 DS 800-160 mg] Allergies Allergy/AdvReac Type Severity Reaction Status Date / Time aspirin AdvReac headache Verified 11/14/18 10:58 Milk Containing Products AdvReac Unknown Verified 11/14/18 10:58 [Dairy] nickel AdvReac Unknown Verified 11/14/18 10:58 Review of Systems ROS Statement: Those systems with pertinent positive or pertinent negative responses have been documented in the HPI. ROS Other: All systems not noted in ROS Statement are negative. Past Medical History Past Medical History: Asthma, GERD/Reflux, Seizure Disorder History of Any Multi-Drug Resistant Organisms: None Reported Past Surgical History: Orthopedic Surgery Additional Past Surgical History / Comment(s): SPIDER BITE/ABSCESS DRAINED, left leg lamonte,pins Past Psychological History: ADD/ADHD, Anxiety, Bipolar, Depression Smoking Status: Current every day smoker Past Alcohol Use History: Occasional Past Drug Use History: Marijuana General Exam - General Exam Comments Initial Comments: Physical Exam GENERAL: Patient is well-developed and well-nourished. Patient is nontoxic and well- hydrated and is in no distress. HENT: Normocephalic, Atraumatic. EYES: PERRL, EOMI PULMONARY: Unlabored respirations. No audible rales rhonchi or wheezing was noted. CARDIOVASCULAR: There is a regular rate and rhythm without any murmurs gallops or rubs. ABDOMEN: Soft and nontender with normal bowel sounds. SKIN: Abscess between breasts : Deferred NEUROLOGIC: Patient is alert and oriented x3. Moving all extremities spontaneously MUSCULOSKELETAL: Normal extremities with adequate strength and full range of motion. No lower extremity swelling or edema. No calf tenderness. PSYCHIATRIC: Normal psychiatric evaluation Course Vital Signs 02/10/19 02/10/19 03:03 04:30 Temperature 98.0 F 98.3 F Pulse Rate 101 H 79 Respiratory 16 18 Rate Blood Pressure 151/84 146/78 O2 Sat by Pulse 97 98 Oximetry Procedures - Incision & Drainage Consent Obtained: verbal consent Indication: abscess Site: chest Anesthetic Used: lidocaine 1% I&D Cleaning Method: Chloroprep Scalpel Used: #11 Needle Aspiration Performed?: Yes I&D Drainage Obtained: Pus, Blood Culture Obtained?: No Patient Tolerated Procedure: well Medical Decision Making - Medical Decision Making Patient with abscess on chest wall, no history of the same Area was cleansed, anesthetized and incision and drainage was performed. Purulent material was noted to be draining out. Patient will be discharged home with oral antibiotics. Supportive care was discussed with questions pertaining care were answered patient was discharged home in stable condition. Disposition Clinical Impression: Abscess Disposition: HOME SELF-CARE Condition: Stable Instructions (If sedation given, give patient instructions): Abscess (ED) Prescriptions: Sulfamethox-Tmp 800-160Mg [Bactrim DS 800-160 mg] 1 tab PO Q12HR #14 tab Sulfamethox-Tmp 800-160Mg [Bactrim DS 800-160 mg] 1 tab PO Q12HR #14 tab Cephalexin [Keflex] 500 mg PO Q6HR #28 cap Cephalexin [Keflex] 500 mg PO Q6HR #28 cap Is patient prescribed a controlled substance at d/c from ED?: No Referrals: Mykel Ramos Jr, [Primary Care Provider] - 1-2 days
[2019-02-10 04:54] VITALS: BP 146/78; PULSE 79; RESP 18; TEMP 98.3
== END 2019-02-10 04:32 | disposition home or self-care (01) ==
LOC: EC 02:56
DX: L02.213 Cutaneous abscess of chest wall (principal); F17.200 Nicotine dependence, unspecified, uncomplicated; F41.9 Anxiety disorder, unspecified; F32.9 Major depressive disorder, single episode, unspecified; Z79.899 Other long term (current) drug therapy; Z88.6 Allergy status to analgesic agent; Z91.011 Allergy to milk products; Z91.048 Other nonmedicinal substance allergy status
CPT/HCPCS: 99282; 10060; J2001

== ENCOUNTER 2020-06-12 16:53 | Emergency (ER) | payer OTHER ==
[2020-06-12] MEDS ORDERED: LIDOCAINE 1% INJ 10MG/ML (20 ML MDV) SQ ONE (17:06)
[2020-06-12] MEDS ORDERED: LIDOCAINE VISCOUS 2% 15 ML CUP MUCOUS MEM ONE (17:06)
--- NOTE | 2020-06-12 17:10 | ED ---
General Adult HPI - General Chief complaint: Skin/Abscess/Foreign Body Stated complaint: Lip pain Time Seen by Provider: 06/12/20 17:00 Source: patient, RN notes reviewed, old records reviewed Mode of arrival: ambulatory Limitations: no limitations - History of Present Illness Initial comments: Patient is a 25-year-old female who presents the emergency room today with lower right-sided lip pain and swelling for the past 2 days. She reports that she had a new lip ring placed on the area 3 days ago. Patient reports that the lip is not swollen and seems as if the ring is somewhat embedded into the lip. Patient reports that she has no drainage from the site. Patient reports that it was " a cheap piercing". And questions of could be related to ALLERGIC reaction. Patient reports no fevers or chills. Denies trouble swallowing. - Related Data Home Medications Medication Instructions Recorded Confirmed Escitalopram Oxalate [Lexapro] 10 mg PO DAILY 03/20/18 11/14/18 hydrOXYzine pamoate [Vistaril] 50 mg PO HS 03/20/18 11/14/18 guaiFENesin-Coden 100-10MG/5ML 10 ml PO Q6H PRN 11/14/18 11/14/18 [Robitussin AC] Previous Rx's Medication Instructions Recorded OXcarbazepine [Trileptal] 300 mg PO BID #60 tab 09/24/16 Acetaminophen Tab [Tylenol Tab] 500 mg PO Q6H PRN 5 Days #20 tablet 04/28/18 guaiFENesin SYRUP 100MG/5ML 10 ml PO Q8H 5 Days #1 bottle 11/14/18 [Robitussin] Cephalexin [Keflex] 500 mg PO Q6HR #28 cap 02/10/19 Cephalexin [Keflex] 500 mg PO Q6HR #28 cap 02/10/19 Sulfamethox-Tmp 800-160Mg [Bactrim 1 tab PO Q12HR #14 tab 02/10/19 DS 800-160 mg] Sulfamethox-Tmp 800-160Mg [Bactrim 1 tab PO Q12HR #14 tab 02/10/19 DS 800-160 mg] Clindamycin [Cleocin] 450 mg PO TID 7 Days capsule 06/12/20 Allergies Allergy/AdvReac Type Severity Reaction Status Date / Time aspirin AdvReac headache Verified 06/12/20 16:57 Milk Containing Products AdvReac Unknown Verified 06/12/20 16:57 [Dairy] nickel AdvReac Unknown Verified 06/12/20 16:57 Review of Systems ROS Statement: Those systems with pertinent positive or pertinent negative responses have been documented in the HPI. ROS Other: All systems not noted in ROS Statement are negative. Past Medical History Past Medical History: Asthma, GERD/Reflux, Seizure Disorder History of Any Multi-Drug Resistant Organisms: None Reported Past Surgical History: Orthopedic Surgery Additional Past Surgical History / Comment(s): SPIDER BITE/ABSCESS DRAINED, left leg lamonte,pins Past Psychological History: ADD/ADHD, Anxiety, Bipolar, Depression Smoking Status: Current every day smoker Past Alcohol Use History: Occasional Past Drug Use History: Marijuana General Exam - General Exam Comments Initial Comments: 25-year-old female. Alert and oriented 3. No distress. Limitations: no limitations General appearance: alert, in no apparent distress Head exam: Present: atraumatic, normocephalic, normal inspection Eye exam: Present: normal appearance, PERRL, EOMI. Absent: scleral icterus, conjunctival injection, periorbital swelling ENT exam: Present: normal exam, mucous membranes moist, other (Patient has embedded lip ring in the right lower lip. The lip is swollen. No drainage. There is erythema on the lower lip.) Neck exam: Present: normal inspection. Absent: tenderness, meningismus, lymphadenopathy Respiratory exam: Present: normal lung sounds bilaterally. Absent: respiratory distress, wheezes, rales, rhonchi, stridor Cardiovascular Exam: Present: regular rate, normal rhythm, normal heart sounds. Absent: systolic murmur, diastolic murmur, rubs, gallop, clicks Extremities exam: Present: normal inspection, full ROM, normal capillary refill. Absent: tenderness, pedal edema, joint swelling, calf tenderness Back exam: Present: normal inspection Neurological exam: Present: alert, oriented X3, CN II-XII intact Psychiatric exam: Present: normal affect, normal mood Skin exam: Present: warm, dry, intact, normal color. Absent: rash Course Vital Signs 06/12/20 16:54 Temperature 98.5 F Pulse Rate 101 H Respiratory 18 Rate Blood Pressure 136/66 O2 Sat by Pulse 98 Oximetry Procedures - Procedures Initial comment: Lower left sided lip ring was removed after Patient placed viscous lidocaine over the area. Patient's lip was then cleaned an outside with iodine. Approximate only 2 mL of iodine was injected around the lip. The piercing was pushed through the inner lip and the ring was clasped on the inner lip. I then was able to unscrew the outer portion of the lip ring is my finger and the lip and was improved in its entirety. Patient tolerated the procedure well. No skin bleeding. Medical Decision Making - Medical Decision Making 25-year-old female presents emergency room today with lower lip swelling for 2 to a new piercing in her lip. It is difficult to determine if the lip swelling is related to infection from the new piercing versus ALLERGIC reaction from possible nickel. She reports that it was a cheap piercing. Patient's lip was anesthetized and the piercing was removed without difficulty. Patient tolerated the procedure well. Discussed covering for infected lip at this time with clindamycin. Patient was given a prescription. Advised following up with primary care doctor. All questions answered. Disposition Clinical Impression: Infected pierced lip Disposition: HOME SELF-CARE Condition: Good Instructions (If sedation given, give patient instructions): Abscess (ED) Additional Instructions: Take the medication as prescribed. Return to the emergency department if any alarming signs or symptoms occur. Is advised to apply cool compresses over the lip to help with swelling. Take Motrin Tylenol for pain. Prescriptions: Clindamycin [Cleocin] 450 mg PO TID 7 Days capsule Is patient prescribed a controlled substance at d/c from ED?: No Referrals: Mykel Ramos Jr, DO [Primary Care Provider] - 1-2 days Time of Disposition: 17:51
[2020-06-12 18:01] VITALS: BP 138/78; PULSE 95; RESP 16; TEMP 98.2
== END 2020-06-12 18:00 | disposition home or self-care (01) ==
LOC: EC 16:53
DX: L08.9 Local infection of the skin and subcutaneous tissue, unspecified (principal); F41.9 Anxiety disorder, unspecified; F32.9 Major depressive disorder, single episode, unspecified; F17.200 Nicotine dependence, unspecified, uncomplicated; Z79.899 Other long term (current) drug therapy; Z91.048 Other nonmedicinal substance allergy status; Z88.6 Allergy status to analgesic agent; Z91.011 Allergy to milk products
CPT/HCPCS: 99283; J2001

== ENCOUNTER 2020-10-07 00:11 | Emergency (ER) | payer OTHER ==
[2020-10-07 00:21] VITALS: TEMP 99.3
[2020-10-07] MEDS ORDERED: ONDANSETRON 4 MG/2 ML VIAL IVP STA (00:33)
[2020-10-07] MEDS ORDERED: SODIUM CHLORIDE 0.9% 1,000 ML IV STA (00:33)
[2020-10-07] MEDS ORDERED: SODIUM CHLORIDE 0.9% 500 ML 500 ML IV STA (00:33)
[2020-10-07] MEDS ORDERED: diphenhydrAMINE 50 MG/ML 1 ML VIAL IVP STA (00:34)
[2020-10-07] MEDS ORDERED: KETOROLAC 15 MG/ML 1 ML VIAL IVP STA (00:34)
[2020-10-07] MEDS ORDERED: FAMOTIDINE 20 MG/2 ML VIAL IV STA (00:34)
[2020-10-07 00:53] LABS: Basophils # (A) 0.1 k/uL (0-0.2); Basophils % (A) 0 %; Eosinophils # (A) 0.8 k/uL (0-0.7); Eosinophils % (A) 6 %; HCT 43.4 % (34.0-46.0); HGB 14.6 gm/dL (11.4-16.0); Lymphocytes # (A) 2.5 k/uL (1.0-4.8); Lymphocytes % (A) 18 %; MCH 30.1 pg (25.0-35.0); MCHC 33.6 g/dL (31.0-37.0); MCV 89.6 fL (80.0-100.0); Mean Platelet Volume 7.6; Monocytes # (A) 0.5 k/uL (0-1.0); Monocytes % (A) 4 %; Neutrophils # (A) 9.4 k/uL (1.3-7.7); Neutrophils % (A) 71 %; Platelet Count 290 k/uL (150-450); RBC 4.84 m/uL (3.80-5.40); RDW 12.2 % (11.5-15.5); WBC 13.3 k/uL (3.8-10.6)
--- NOTE | 2020-10-07 01:04 | ED ---
Nausea/Vomiting/Diarrhea HPI - General Chief complaint: Nausea/Vomiting/Diarrhea Stated complaint: Vomiting Time Seen by Provider: 10/07/20 00:26 Source: patient, family Mode of arrival: ambulatory Limitations: no limitations - History of Present Illness Initial comments: 25-year-old female patient presents to the emergency department today for evaluation of nausea and vomiting. States symptoms around 9 PM this evening. States she is having discomfort to the midepigastric area. Denies any constipation or diarrhea. Denies fever or chills. Denies eating any questionable foods. Denies any sick contacts. Denies any new medications. States there is a possibility of . Denies any hematuria, dysuria, urinary frequency, urinary urgency. Denies history of abdominal surgery. Patient denies any recent rash, cough, shortness of breath, chest pain, back pain, numbness, tingling, dizziness, weakness, hematuria, dysuria, urinary urgency, urinary frequency, headache, visual changes, or any other complaints. - Related Data Home Medications Medication Instructions Recorded Confirmed Escitalopram Oxalate [Lexapro] 10 mg PO DAILY 03/20/18 11/14/18 hydrOXYzine pamoate [Vistaril] 50 mg PO HS 03/20/18 11/14/18 guaiFENesin-Coden 100-10MG/5ML 10 ml PO Q6H PRN 11/14/18 11/14/18 [Robitussin AC] Previous Rx's Medication Instructions Recorded OXcarbazepine [Trileptal] 300 mg PO BID #60 tab 09/24/16 Acetaminophen Tab [Tylenol Tab] 500 mg PO Q6H PRN 5 Days #20 tablet 04/28/18 guaiFENesin SYRUP 100MG/5ML 10 ml PO Q8H 5 Days #1 bottle 11/14/18 [Robitussin] Cephalexin [Keflex] 500 mg PO Q6HR #28 cap 02/10/19 Cephalexin [Keflex] 500 mg PO Q6HR #28 cap 02/10/19 Sulfamethox-Tmp 800-160Mg [Bactrim 1 tab PO Q12HR #14 tab 02/10/19 DS 800-160 mg] Sulfamethox-Tmp 800-160Mg [Bactrim 1 tab PO Q12HR #14 tab 02/10/19 DS 800-160 mg] Clindamycin [Cleocin] 450 mg PO TID 7 Days capsule 06/12/20 Ondansetron [Zofran ODT] 4 mg PO Q8HR PRN #10 tab 10/07/20 Allergies Allergy/AdvReac Type Severity Reaction Status Date / Time aspirin AdvReac headache Verified 10/07/20 00:21 Milk Containing Products AdvReac Unknown Verified 10/07/20 00:21 [Dairy] nickel AdvReac Unknown Verified 10/07/20 00:21 Review of Systems ROS Statement: Those systems with pertinent positive or pertinent negative responses have been documented in the HPI. ROS Other: All systems not noted in ROS Statement are negative. Past Medical History Past Medical History: Asthma, GERD/Reflux, Seizure Disorder History of Any Multi-Drug Resistant Organisms: None Reported Past Surgical History: Orthopedic Surgery Additional Past Surgical History / Comment(s): SPIDER BITE/ABSCESS DRAINED, left leg lamonte,pins Past Psychological History: ADD/ADHD, Anxiety, Bipolar, Depression Smoking Status: Current every day smoker, Vaper Past Alcohol Use History: Occasional Past Drug Use History: Marijuana General Exam Limitations: no limitations General appearance: alert, in no apparent distress, other (This is a well- developed, well-nourished adult female patient in no acute distress. Vital signs upon presentation are temperature 99.3F, pulse 106, respirations 22, blood pressure 134/79, pulse ox 99% on room air.) ENT exam: Present: normal exam, normal oropharynx, mucous membranes moist Respiratory exam: Present: normal lung sounds bilaterally. Absent: respiratory distress, wheezes, rales, rhonchi, stridor Cardiovascular Exam: Present: regular rate, normal rhythm, normal heart sounds. Absent: systolic murmur, diastolic murmur, rubs, gallop, clicks GI/Abdominal exam: Present: soft, tenderness (midepigastric), normal bowel sounds. Absent: distended, guarding, rebound, rigid Neurological exam: Present: alert, oriented X3, CN II-XII intact Psychiatric exam: Present: normal affect, normal mood Skin exam: Present: warm, dry, intact, normal color. Absent: rash Course Vital Signs 10/07/20 00:15 Temperature 99.3 F Pulse Rate 106 H Respiratory 22 Rate Blood Pressure 134/79 O2 Sat by Pulse 99 Oximetry Medical Decision Making - Medical Decision Making 25-year-old female patient presents to the emergency department today for evaluation of vomiting that started a couple hours ago. He also reporting a headache that started with the vomiting. Physical examination did reveal mild midepigastric tenderness. Remainder of abdomen is nontender. Labs reviewed and did reveal elevated white blood cell count at 13.3 likely different vomiting. She is afebrile, vital signs. We did start an IV, give IV fluids, nausea and pain medication. Upon reevaluation she is resting comfortably in bed. States symptoms are improved. She's had no more vomiting while in the department. She'll be discharged to follow-up with the primary care physician for recheck in 1-2 days. She'll be given prescription for Zofran for symptom management. Return parameters were discussed in detail. She verbalizes understanding and agrees with this plan. - Lab Data Result diagrams: 10/07/20 00:45 10/07/20 00:45 Lab Results 10/07/20 10/07/20 10/07/20 Range/Units 00:45 00:45 00:45 WBC 13.3 H (3.8-10.6) k/uL RBC 4.84 (3.80-5.40) m/uL Hgb 14.6 (11.4-16.0) gm/dL Hct 43.4 (34.0-46.0) % MCV 89.6 (80.0-100.0) fL MCH 30.1 (25.0-35.0) pg MCHC 33.6 (31.0-37.0) g/dL RDW 12.2 (11.5-15.5) % Plt Count 290 (150-450) k/uL MPV 7.6 Neutrophils % 71 % Lymphocytes % 18 % Monocytes % 4 % Eosinophils % 6 % Basophils % 0 % Neutrophils # 9.4 H (1.3-7.7) k/uL Lymphocytes # 2.5 (1.0-4.8) k/uL Monocytes # 0.5 (0-1.0) k/uL Eosinophils # 0.8 H (0-0.7) k/uL Basophils # 0.1 (0-0.2) k/uL Sodium 138 (137-145) mmol/L Potassium 4.3 (3.5-5.1) mmol/L Chloride 102 (98-107) mmol/L Carbon Dioxide 25 (22-30) mmol/L Anion Gap 11 mmol/L BUN 17 (7-17) mg/dL Creatinine 0.66 (0.52-1.04) mg/dL Est GFR (CKD-EPI)AfAm >90 (>60 ml/min/1.73 sqM) Est GFR (CKD-EPI)NonAf >90 (>60 ml/min/1.73 sqM) Glucose 115 H (74-99) mg/dL Calcium 9.6 (8.4-10.2) mg/dL Total Bilirubin 0.3 (0.2-1.3) mg/dL AST 22 (14-36) U/L ALT 19 (4-34) U/L Alkaline Phosphatase 77 (38-126) U/L Total Protein 7.9 (6.3-8.2) g/dL Albumin 4.6 (3.5-5.0) g/dL Lipase 93 (23-300) U/L Urine Color Light Yellow Urine Appearance Turbid H (Clear) Urine pH 7.0 (5.0-8.0) Ur Specific [place] 1.018 (1.001-1.035) Urine Protein Negative (Negative) Urine Glucose (UA) Negative (Negative) Urine Ketones Negative (Negative) Urine Blood Negative (Negative) Urine Nitrite Negative (Negative) Urine Bilirubin Negative (Negative) Urine Urobilinogen <2.0 (<2.0) mg/dL Ur Leukocyte Esterase Negative (Negative) Urine RBC 1 (0-5) /hpf Urine WBC 1 (0-5) /hpf Ur Squamous Epith Cells 1 (0-4) /hpf Amorphous Sediment Rare H (None) /hpf Urine Mucus Rare H (None) /hpf Urine HCG, Qual (Not Detectd) 10/07/20 Range/Units 00:45 WBC (3.8-10.6) k/uL RBC (3.80-5.40) m/uL Hgb (11.4-16.0) gm/dL Hct (34.0-46.0) % MCV (80.0-100.0) fL MCH (25.0-35.0) pg MCHC (31.0-37.0) g/dL RDW (11.5-15.5) % Plt Count (150-450) k/uL MPV Neutrophils % % Lymphocytes % % Monocytes % % Eosinophils % % Basophils % % Neutrophils # (1.3-7.7) k/uL Lymphocytes # (1.0-4.8) k/uL Monocytes # (0-1.0) k/uL Eosinophils # (0-0.7) k/uL Basophils # (0-0.2) k/uL Sodium (137-145) mmol/L Potassium (3.5-5.1) mmol/L Chloride (98-107) mmol/L Carbon Dioxide (22-30) mmol/L Anion Gap mmol/L BUN (7-17) mg/dL Creatinine (0.52-1.04) mg/dL Est GFR (CKD-EPI)AfAm (>60 ml/min/1.73 sqM) Est GFR (CKD-EPI)NonAf (>60 ml/min/1.73 sqM) Glucose (74-99) mg/dL Calcium (8.4-10.2) mg/dL Total Bilirubin (0.2-1.3) mg/dL AST (14-36) U/L ALT (4-34) U/L Alkaline Phosphatase (38-126) U/L Total Protein (6.3-8.2) g/dL Albumin (3.5-5.0) g/dL Lipase (23-300) U/L Urine Color Urine Appearance (Clear) Urine pH (5.0-8.0) Ur Specific [place] (1.001-1.035) Urine Protein (Negative) Urine Glucose (UA) (Negative) Urine Ketones (Negative) Urine Blood (Negative) Urine Nitrite (Negative) Urine Bilirubin (Negative) Urine Urobilinogen (<2.0) mg/dL Ur Leukocyte Esterase (Negative) Urine RBC (0-5) /hpf Urine WBC (0-5) /hpf Ur Squamous Epith Cells (0-4) /hpf Amorphous Sediment (None) /hpf Urine Mucus (None) /hpf Urine HCG, Qual Not Detected (Not Detectd) Disposition Clinical Impression: Vomiting Disposition: HOME SELF-CARE Condition: Good Instructions (If sedation given, give patient instructions): Acute Nausea and Vomiting (ED) Additional Instructions: Take medications as directed. Start with a clear liquid diet and advance as tolerated. Follow-up through primary care physician for recheck in 1-2 days. Return to the emergency department for any new, worsening, or concerning symptoms. Prescriptions: Ondansetron [Zofran ODT] 4 mg PO Q8HR PRN #10 tab PRN Reason: Nausea Is patient prescribed a controlled substance at d/c from ED?: No Referrals: Mykel Ramos Jr, DO [Primary Care Provider] - 1-2 days Time of Disposition: 01:55
[2020-10-07 01:09] LABS: ALT 19 U/L (4-34); AST 22 U/L (14-36); African American GFR (CKD) >90 (>60 ml/min/1.73 sqM); Albumin 4.6 g/dL (3.5-5.0); Alkaline Phosphatase 77 U/L (38-126); Anion Gap 11 mmol/L; Blood Urea Nitrogen 17 mg/dL (7-17); Calcium 9.6 mg/dL (8.4-10.2); Carbon Dioxide 25 mmol/L (22-30); Chloride 102 mmol/L (98-107); Glucose 115 mg/dL (74-99); Lipase 93 U/L (23-300); Non-African American GFR(CKD) >90 (>60 ml/min/1.73 sqM); Potassium 4.3 mmol/L (3.5-5.1); Sodium 138 mmol/L (137-145); Total Bilirubin 0.3 mg/dL (0.2-1.3); Total Protein 7.9 g/dL (6.3-8.2)
[2020-10-07 01:12] LABS: Amorphous Sediment,Urine Rare /hpf; Appearance,Urine Turbid (Clear); Bilirubin,Urine Negative (Negative); Blood,Urine Negative (Negative); Color,Urine Light Yellow; Glucose,Urine (UA) Negative (Negative); Ketones,Urine Negative (Negative); Leukocyte Esterase,Urine Negative (Negative); Mucus,Urine Rare /hpf; Nitrite,Urine Negative (Negative); Protein,Urine Negative (Negative); RBC,Urine 1 /hpf (0-5); Specific Gravity,Urine 1.018 (1.001-1.035); Squamous Epithelial Cell,Urine 1 /hpf (0-4); Urobilinogen,Urine <2.0 mg/dL (<2.0); WBC,Urine 1 /hpf (0-5)
[2020-10-07] MEDS ORDERED: ONDANSETRON 4 MG ODT STARTER PACK 2 TAB BTL PO STA (01:55)
[2020-10-07 02:10] VITALS: BP 129/69; PULSE 95; RESP 18
== END 2020-10-07 02:18 | disposition home or self-care (01) ==
LOC: EC 00:11
DX: R11.2 Nausea with vomiting, unspecified (principal); G40.909 Epilepsy, unspecified, not intractable, without status epilepticus; J45.909 Unspecified asthma, uncomplicated; F32.9 Major depressive disorder, single episode, unspecified; F17.200 Nicotine dependence, unspecified, uncomplicated
CPT/HCPCS: 36415; 80053; 83690; 85025; 81001; 81025; 99284; 96374; 96375; 96361; J1200; J2405; J1885; S0119

== ENCOUNTER 2021-01-29 16:09 | Emergency (ER) | payer OTHER ==
[2021-01-29 16:43] VITALS: BP 102/65; PULSE 65; RESP 20; TEMP 98
[2021-01-29] MEDS ORDERED: IBUPROFEN 800 MG TAB PO STA (16:57)
--- NOTE | 2021-01-29 17:25 | XR ---
PROCEDURE: XR knee complete LT - 4V DATE AND TIME: 01/29/2021 5:20 PM CLINICAL INDICATION: Knee injury/pain TECHNIQUE: AP, oblique, and 2 crosstable lateral views were obtained COMPARISON: 04/28/2018 FINDINGS: The visualized distal femoral IM lamonte is intact. No periprosthesis lucencies. There is no fracture or malalignment. The soft tissues are unremarkable. IMPRESSION: NO ACUTE PROCESS.
--- NOTE | 2021-01-29 17:51 | ED ---
Lower Extremity Injury HPI - General Chief Complaint: Extremity Injury, Lower Stated Complaint: Fall, L knee pain Time Seen by Provider: 01/29/21 16:47 Source: patient, RN notes reviewed Mode of arrival: ambulatory Limitations: no limitations - History of Present Illness Initial Comments: Patient is a 25-year-old female that presents to emergency by complaining of left knee pain. She notes she was walking over the bridge when she tripped over her shoelace in her left knee. She notes that she work on it before coming into the emergency room. She was in no apparent distress or pain while sitting up in bed during exam and interview. She noted that her pain was approximate 7 out of 10 with no relief. She would like some Motrin. She denied any numbness tingling decreased range of motion or sensation in her left lower x-ray. She did note that it hurts to flex her knee all the way. She denied any chest pain first breath headache nausea vomiting diarrhea constipation fever fatigue chills. - Related Data Home Medications Medication Instructions Recorded Confirmed Escitalopram Oxalate [Lexapro] 10 mg PO DAILY 03/20/18 11/14/18 hydrOXYzine pamoate [Vistaril] 50 mg PO HS 03/20/18 11/14/18 guaiFENesin-Coden 100-10MG/5ML 10 ml PO Q6H PRN 11/14/18 11/14/18 [Robitussin AC] Previous Rx's Medication Instructions Recorded OXcarbazepine [Trileptal] 300 mg PO BID #60 tab 09/24/16 Acetaminophen Tab [Tylenol Tab] 500 mg PO Q6H PRN 5 Days #20 tablet 04/28/18 guaiFENesin SYRUP 100MG/5ML 10 ml PO Q8H 5 Days #1 bottle 11/14/18 [Robitussin] Cephalexin [Keflex] 500 mg PO Q6HR #28 cap 02/10/19 Cephalexin [Keflex] 500 mg PO Q6HR #28 cap 02/10/19 Sulfamethox-Tmp 800-160Mg [Bactrim 1 tab PO Q12HR #14 tab 02/10/19 DS 800-160 mg] Sulfamethox-Tmp 800-160Mg [Bactrim 1 tab PO Q12HR #14 tab 02/10/19 DS 800-160 mg] Clindamycin [Cleocin] 450 mg PO TID 7 Days capsule 06/12/20 Ondansetron [Zofran ODT] 4 mg PO Q8HR PRN #10 tab 10/07/20 Allergies Allergy/AdvReac Type Severity Reaction Status Date / Time aspirin AdvReac headache Verified 01/29/21 16:42 Milk Containing Products AdvReac Unknown Verified 01/29/21 16:42 [Dairy] nickel AdvReac Unknown Verified 01/29/21 16:42 Review of Systems ROS Statement: Those systems with pertinent positive or pertinent negative responses have been documented in the HPI. ROS Other: All systems not noted in ROS Statement are negative. Past Medical History Past Medical History: Asthma, GERD/Reflux, Seizure Disorder History of Any Multi-Drug Resistant Organisms: None Reported Past Surgical History: Orthopedic Surgery Additional Past Surgical History / Comment(s): SPIDER BITE/ABSCESS DRAINED, left leg lamonte,pins Past Psychological History: ADD/ADHD, Anxiety, Bipolar, Depression Smoking Status: Current every day smoker, Vaper Past Alcohol Use History: Occasional Past Drug Use History: Marijuana General Exam Limitations: no limitations General appearance: alert, in no apparent distress, obese Head exam: Present: atraumatic, normocephalic, normal inspection Eye exam: Present: normal appearance, PERRL, EOMI. Absent: scleral icterus, conjunctival injection, periorbital swelling Neck exam: Present: normal inspection Respiratory exam: Present: normal lung sounds bilaterally. Absent: respiratory distress, wheezes, rales, rhonchi, stridor Cardiovascular Exam: Present: regular rate, normal rhythm, normal heart sounds. Absent: systolic murmur, diastolic murmur, rubs, gallop, clicks Left Knee exam: Present: normal inspection, full ROM (Mild pain on full flexion), tenderness (Lateral aspect), full knee extension. Absent: swelling, abrasion, laceration, ecchymosis, deformity, crepitus Neurological exam: Present: alert, oriented X3 Psychiatric exam: Present: normal affect, normal mood Skin exam: Present: warm, dry, intact, normal color. Absent: rash Course Vital Signs 01/29/21 16:39 Temperature 98.0 F Pulse Rate 65 Respiratory 20 Rate Blood Pressure 102/65 O2 Sat by Pulse 97 Oximetry Medical Decision Making - Medical Decision Making 25-year-old female complaining of left knee pain after falling while walking across a bridge. X-ray left knee, 800 mg of Motrin ordered. X-ray negative for any acute process. Case discussed with Dr. Resendez, patient can discharge home with follow-up to orthopedist and primary care as needed. - Radiology Data Radiology results: report reviewed, image reviewed X-ray left knee: No acute process. Disposition Clinical Impression: Left knee sprain Disposition: HOME SELF-CARE Condition: Stable Instructions (If sedation given, give patient instructions): Knee Sprain (ED) Additional Instructions: Please return to the Emergency Department if symptoms worsen or any other concerns. Follow-up with primary care in the next several days. Follow-up with orthopedist as needed. Rest ice compress elevate. Take Tylenol Motrin as needed for pain control. Is patient prescribed a controlled substance at d/c from ED?: No Referrals: Mykel Ramos Jr, DO [Primary Care Provider] - 1-2 days Jaime Jean PAC [PHYSICIAN [employer]] - 1-2 days Time of Disposition: 17:50
== END 2021-01-29 18:05 | disposition home or self-care (01) ==
LOC: EC 16:09
DX: S83.92XA Sprain of unspecified site of left knee, initial encounter (principal); J45.909 Unspecified asthma, uncomplicated; K21.9 Gastro-esophageal reflux disease without esophagitis; G40.909 Epilepsy, unspecified, not intractable, without status epilepticus; F31.9 Bipolar disorder, unspecified; F41.9 Anxiety disorder, unspecified; F90.9 Attention-deficit hyperactivity disorder, unspecified type; F17.200 Nicotine dependence, unspecified, uncomplicated; F12.90 Cannabis use, unspecified, uncomplicated; Z88.6 Allergy status to analgesic agent; W01.0XXA Fall on same level from slipping, tripping and stumbling without subsequent striking against object, initial encounter; Y93.01 Activity, walking, marching and hiking; Y92.89 Other specified places as the place of occurrence of the external cause
CPT/HCPCS: 99283

== ENCOUNTER 2021-03-06 02:36 | Emergency (ER) | payer OTHER ==
[2021-03-06 02:42] VITALS: TEMP 98
[2021-03-06] MEDS ORDERED: SODIUM CHLORIDE 0.9% 1,000 ML IV STA ×2 (03:02)
[2021-03-06] MEDS ORDERED: SODIUM CHLORIDE 0.9% 500 ML 500 ML IV STA (03:02)
[2021-03-06] MEDS ORDERED: ONDANSETRON 4 MG/2 ML VIAL IVP STA (03:02)
[2021-03-06] MEDS ORDERED: KETOROLAC 15 MG/ML 1 ML VIAL IVP STA (03:04)
[2021-03-06] MEDS ORDERED: PANTOPRAZOLE 40 MG/10 ML VIAL IVP STA (03:04)
[2021-03-06] MEDS ORDERED: diphenhydrAMINE 50 MG/ML 1 ML VIAL IVP STA (03:04)
--- NOTE | 2021-03-06 03:05 | ED ---
Nausea/Vomiting/Diarrhea HPI - General Chief complaint: Headache Stated complaint: Vomiting Time Seen by Provider: 03/06/21 02:43 Source: patient, RN notes reviewed, old records reviewed Mode of arrival: ambulatory Limitations: no limitations - History of Present Illness Initial comments: This is a 25-year-old female DF for evaluation patient presents today with mild headache but severe nausea and vomiting. Patient states she thinks she may have ate some moldy bread. Patient has no other recent travel history sick contacts or fevers. No recent change in medications no recent drug or alcohol abuse and denies chance of . No abdominal pain MD complaint: nausea, vomiting -: hour(s) Description of Vomiting: watery, bilious Description of Diarrhea: other (none) Associated Abdominal Pain: Yes Location: epigastric Radiation: none Severity: mild Quality: cramping Improves with: none Worsens with: none Context: possible food poisoning Associated Symptoms: loss of appetite, nausea/vomiting - Related Data Home Medications Medication Instructions Recorded Confirmed Escitalopram Oxalate [Lexapro] 10 mg PO DAILY 03/20/18 11/14/18 hydrOXYzine pamoate [Vistaril] 50 mg PO HS 03/20/18 11/14/18 guaiFENesin-Coden 100-10MG/5ML 10 ml PO Q6H PRN 11/14/18 11/14/18 [Robitussin AC] Previous Rx's Medication Instructions Recorded OXcarbazepine [Trileptal] 300 mg PO BID #60 tab 09/24/16 Acetaminophen Tab [Tylenol Tab] 500 mg PO Q6H PRN 5 Days #20 tablet 04/28/18 guaiFENesin SYRUP 100MG/5ML 10 ml PO Q8H 5 Days #1 bottle 11/14/18 [Robitussin] Cephalexin [Keflex] 500 mg PO Q6HR #28 cap 02/10/19 Cephalexin [Keflex] 500 mg PO Q6HR #28 cap 02/10/19 Sulfamethox-Tmp 800-160Mg [Bactrim 1 tab PO Q12HR #14 tab 02/10/19 DS 800-160 mg] Sulfamethox-Tmp 800-160Mg [Bactrim 1 tab PO Q12HR #14 tab 02/10/19 DS 800-160 mg] Clindamycin [Cleocin] 450 mg PO TID 7 Days capsule 06/12/20 Ondansetron [Zofran ODT] 4 mg PO Q8HR PRN #10 tab 10/07/20 Allergies Allergy/AdvReac Type Severity Reaction Status Date / Time aspirin AdvReac headache Verified 03/06/21 02:41 Milk Containing Products AdvReac Unknown Verified 03/06/21 02:41 [Dairy] nickel AdvReac Unknown Verified 03/06/21 02:41 Review of Systems ROS Statement: Those systems with pertinent positive or pertinent negative responses have been documented in the HPI. ROS Other: All systems not noted in ROS Statement are negative. Past Medical History Past Medical History: Asthma, GERD/Reflux, Seizure Disorder History of Any Multi-Drug Resistant Organisms: None Reported Past Surgical History: Orthopedic Surgery Additional Past Surgical History / Comment(s): SPIDER BITE/ABSCESS DRAINED, left leg lamonte,pins Past Psychological History: ADD/ADHD, Anxiety, Bipolar, Depression Smoking Status: Current some day smoker, Vaper Past Alcohol Use History: Occasional Past Drug Use History: Marijuana General Exam Limitations: no limitations General appearance: alert, in no apparent distress Head exam: Present: atraumatic, normocephalic, normal inspection Eye exam: Present: normal appearance, PERRL, EOMI. Absent: scleral icterus, conjunctival injection, periorbital swelling ENT exam: Present: normal exam, mucous membranes moist Neck exam: Present: normal inspection. Absent: tenderness, meningismus, lymphadenopathy Respiratory exam: Present: normal lung sounds bilaterally. Absent: respiratory distress, wheezes, rales, rhonchi, stridor Cardiovascular Exam: Present: regular rate, normal rhythm, normal heart sounds. Absent: systolic murmur, diastolic murmur, rubs, gallop, clicks GI/Abdominal exam: Present: soft, normal bowel sounds. Absent: distended, tenderness, guarding, rebound, rigid Extremities exam: Present: normal inspection, full ROM, normal capillary refill. Absent: tenderness, pedal edema, joint swelling, calf tenderness Back exam: Present: normal inspection Neurological exam: Present: alert, oriented X3, CN II-XII intact Psychiatric exam: Present: normal affect, normal mood Skin exam: Present: warm, dry, intact, normal color. Absent: rash Course Vital Signs 03/06/21 02:37 Temperature 98 F Pulse Rate 99 Respiratory 22 Rate Blood Pressure 114/76 O2 Sat by Pulse 96 Oximetry - Reevaluation(s) Reevaluation #1: 03/06/21 03:18 Medical record is reviewed Reevaluation #2: 03/06/21 04:25 Symptoms resolved here in the ER Reevaluation #3: 03/06/21 04:25 Patient informed results questions answered Medical Decision Making - Medical Decision Making 25 female to the ER for evaluation patient is persistent significant nausea vomiting. Symptoms resolved here in the ER she can be discharged home - Lab Data Result diagrams: 03/06/21 03:13 03/06/21 03:13 Lab Results 03/06/21 03/06/21 03/06/21 Range/Units 03:13 03:13 03:13 WBC 12.6 H (3.8-10.6) k/uL RBC 4.91 (3.80-5.40) m/uL Hgb 15.1 (11.4-16.0) gm/dL Hct 44.4 (34.0-46.0) % MCV 90.5 (80.0-100.0) fL MCH 30.8 (25.0-35.0) pg MCHC 34.0 (31.0-37.0) g/dL RDW 12.0 (11.5-15.5) % Plt Count 366 (150-450) k/uL MPV 8.3 Neutrophils % 80 % Lymphocytes % 15 % Monocytes % 3 % Eosinophils % 1 % Basophils % 1 % Neutrophils # 10.0 H (1.3-7.7) k/uL Lymphocytes # 1.9 (1.0-4.8) k/uL Monocytes # 0.4 (0-1.0) k/uL Eosinophils # 0.1 (0-0.7) k/uL Basophils # 0.1 (0-0.2) k/uL Sodium 141 (137-145) mmol/L Potassium 4.4 (3.5-5.1) mmol/L Chloride 106 (98-107) mmol/L Carbon Dioxide 22 (22-30) mmol/L Anion Gap 13 mmol/L BUN 11 (7-17) mg/dL Creatinine 0.61 (0.52-1.04) mg/dL Est GFR (CKD-EPI)AfAm >90 (>60 ml/min/1.73 sqM) Est GFR (CKD-EPI)NonAf >90 (>60 ml/min/1.73 sqM) Glucose 120 H (74-99) mg/dL Calcium 10.1 (8.4-10.2) mg/dL Phosphorus 3.5 (2.5-4.5) mg/dL Magnesium 2.2 (1.6-2.3) mg/dL Total Bilirubin 0.2 (0.2-1.3) mg/dL AST 21 (14-36) U/L ALT 13 (4-34) U/L Alkaline Phosphatase 87 (38-126) U/L Total Protein 8.3 H (6.3-8.2) g/dL Albumin 5.0 (3.5-5.0) g/dL Lipase 87 (23-300) U/L Urine Color Yellow Urine Appearance Cloudy H (Clear) Urine pH 7.5 (5.0-8.0) Ur Specific [place] 1.024 (1.001-1.035) Urine Protein 1+ H (Negative) Urine Glucose (UA) Negative (Negative) Urine Ketones 1+ H (Negative) Urine Blood Negative (Negative) Urine Nitrite Negative (Negative) Urine Bilirubin Negative (Negative) Urine Urobilinogen <2.0 (<2.0) mg/dL Ur Leukocyte Esterase Negative (Negative) Urine RBC 2 (0-5) /hpf Urine WBC 2 (0-5) /hpf Ur Squamous Epith Cells 16 H (0-4) /hpf Amorphous Sediment Rare H (None) /hpf Urine Bacteria Few H (None) /hpf Urine Mucus Few H (None) /hpf Urine HCG, Qual (Not Detectd) 03/06/21 Range/Units 03:13 WBC (3.8-10.6) k/uL RBC (3.80-5.40) m/uL Hgb (11.4-16.0) gm/dL Hct (34.0-46.0) % MCV (80.0-100.0) fL MCH (25.0-35.0) pg MCHC (31.0-37.0) g/dL RDW (11.5-15.5) % Plt Count (150-450) k/uL MPV Neutrophils % % Lymphocytes % % Monocytes % % Eosinophils % % Basophils % % Neutrophils # (1.3-7.7) k/uL Lymphocytes # (1.0-4.8) k/uL Monocytes # (0-1.0) k/uL Eosinophils # (0-0.7) k/uL Basophils # (0-0.2) k/uL Sodium (137-145) mmol/L Potassium (3.5-5.1) mmol/L Chloride (98-107) mmol/L Carbon Dioxide (22-30) mmol/L Anion Gap mmol/L BUN (7-17) mg/dL Creatinine (0.52-1.04) mg/dL Est GFR (CKD-EPI)AfAm (>60 ml/min/1.73 sqM) Est GFR (CKD-EPI)NonAf (>60 ml/min/1.73 sqM) Glucose (74-99) mg/dL Calcium (8.4-10.2) mg/dL Phosphorus (2.5-4.5) mg/dL Magnesium (1.6-2.3) mg/dL Total Bilirubin (0.2-1.3) mg/dL AST (14-36) U/L ALT (4-34) U/L Alkaline Phosphatase (38-126) U/L Total Protein (6.3-8.2) g/dL Albumin (3.5-5.0) g/dL Lipase (23-300) U/L Urine Color Urine Appearance (Clear) Urine pH (5.0-8.0) Ur Specific [place] (1.001-1.035) Urine Protein (Negative) Urine Glucose (UA) (Negative) Urine Ketones (Negative) Urine Blood (Negative) Urine Nitrite (Negative) Urine Bilirubin (Negative) Urine Urobilinogen (<2.0) mg/dL Ur Leukocyte Esterase (Negative) Urine RBC (0-5) /hpf Urine WBC (0-5) /hpf Ur Squamous Epith Cells (0-4) /hpf Amorphous Sediment (None) /hpf Urine Bacteria (None) /hpf Urine Mucus (None) /hpf Urine HCG, Qual Not Detected (Not Detectd) Disposition Clinical Impression: Headache, Nausea & vomiting Disposition: HOME SELF-CARE Condition: Good Instructions (If sedation given, give patient instructions): Acute Nausea and Vomiting (ED) Is patient prescribed a controlled substance at d/c from ED?: No Referrals: Mykel Ramos Jr, DO [Primary Care Provider] - 1-2 days
[2021-03-06 03:45] LABS: Basophils # (A) 0.1 k/uL (0-0.2); Basophils % (A) 1 %; Eosinophils # (A) 0.1 k/uL (0-0.7); Eosinophils % (A) 1 %; HCT 44.4 % (34.0-46.0); HGB 15.1 gm/dL (11.4-16.0); Lymphocytes # (A) 1.9 k/uL (1.0-4.8); Lymphocytes % (A) 15 %; MCH 30.8 pg (25.0-35.0); MCV 90.5 fL (80.0-100.0); Mean Platelet Volume 8.3; Monocytes # (A) 0.4 k/uL (0-1.0); Monocytes % (A) 3 %; Neutrophils % (A) 80 %; Platelet Count 366 k/uL (150-450); RBC 4.91 m/uL (3.80-5.40); WBC 12.6 k/uL (3.8-10.6)
[2021-03-06 03:55] LABS: Amorphous Sediment,Urine Rare /hpf; Appearance,Urine Cloudy (Clear); Bacteria,Urine Few /hpf; Bilirubin,Urine Negative (Negative); Blood,Urine Negative (Negative); Color,Urine Yellow; Glucose,Urine (UA) Negative (Negative); Ketones,Urine 1+ (Negative); Leukocyte Esterase,Urine Negative (Negative); Mucus,Urine Few /hpf; Nitrite,Urine Negative (Negative); PH, Urine 7.5 (5.0-8.0); Protein,Urine 1+ (Negative); RBC,Urine 2 /hpf (0-5); Specific Gravity,Urine 1.024 (1.001-1.035); Squamous Epithelial Cell,Urine 16 /hpf (0-4); Urobilinogen,Urine <2.0 mg/dL (<2.0); WBC,Urine 2 /hpf (0-5)
[2021-03-06 04:01] LABS: ALT 13 U/L (4-34); AST 21 U/L (14-36); African American GFR (CKD) >90 (>60 ml/min/1.73 sqM); Alkaline Phosphatase 87 U/L (38-126); Anion Gap 13 mmol/L; Blood Urea Nitrogen 11 mg/dL (7-17); Calcium 10.1 mg/dL (8.4-10.2); Carbon Dioxide 22 mmol/L (22-30); Chloride 106 mmol/L (98-107); Glucose 120 mg/dL (74-99); Lipase 87 U/L (23-300); Magnesium 2.2 mg/dL (1.6-2.3); Non-African American GFR(CKD) >90 (>60 ml/min/1.73 sqM); Phosphorus 3.5 mg/dL (2.5-4.5); Potassium 4.4 mmol/L (3.5-5.1); Sodium 141 mmol/L (137-145); Total Bilirubin 0.2 mg/dL (0.2-1.3); Total Protein 8.3 g/dL (6.3-8.2)
[2021-03-06 04:33] VITALS: BP 129/87; PULSE 87; RESP 16
== END 2021-03-06 04:38 | disposition home or self-care (01) ==
LOC: EC 02:36
DX: R11.2 Nausea with vomiting, unspecified (principal); R51.9 Headache, unspecified; J45.909 Unspecified asthma, uncomplicated; K21.9 Gastro-esophageal reflux disease without esophagitis; G40.909 Epilepsy, unspecified, not intractable, without status epilepticus; F31.9 Bipolar disorder, unspecified; F41.9 Anxiety disorder, unspecified; F90.9 Attention-deficit hyperactivity disorder, unspecified type; F17.290 Nicotine dependence, other tobacco product, uncomplicated; F12.90 Cannabis use, unspecified, uncomplicated; Z88.6 Allergy status to analgesic agent; Z79.899 Other long term (current) drug therapy
CPT/HCPCS: 36415; 80053; 83690; 83735; 84100; 85025; 81001; 81025; 96374; 96375 ×3; 99284; J1200; J2405; J1885; C9113

== ENCOUNTER 2021-08-20 23:44 | Emergency (ER) | payer OTHER ==
[2021-08-20 23:55] VITALS: BP 115/78; PULSE 104; RESP 20; TEMP 97.8
[2021-08-21] MEDS ORDERED: FAMOTIDINE 20 MG/2 ML VIAL IV STA (00:23)
[2021-08-21] MEDS ORDERED: SODIUM CHLORIDE 0.9% 1,000 ML IV STA (00:23)
[2021-08-21 00:53] LABS: Basophils # (A) 0.1 k/uL (0-0.2); Basophils % (A) 1 %; Eosinophils # (A) 0.8 k/uL (0-0.7); Eosinophils % (A) 5 %; HCT 39.6 % (34.0-46.0); HGB 13.4 gm/dL (11.4-16.0); Lymphocytes # (A) 3.3 k/uL (1.0-4.8); Lymphocytes % (A) 22 %; MCH 30.4 pg (25.0-35.0); MCHC 33.8 g/dL (31.0-37.0); MCV 89.8 fL (80.0-100.0); Mean Platelet Volume 8.3; Monocytes # (A) 0.6 k/uL (0-1.0); Monocytes % (A) 4 %; Neutrophils # (A) 10.1 k/uL (1.3-7.7); Neutrophils % (A) 67 %; Platelet Count 283 k/uL (150-450); RBC 4.41 m/uL (3.80-5.40); RDW 12.4 % (11.5-15.5)
[2021-08-21 01:06] LABS: ALT 15 U/L (4-34); AST 21 U/L (14-36); African American GFR (CKD) >90 (>60 ml/min/1.73 sqM); Alkaline Phosphatase 61 U/L (38-126); Anion Gap 8 mmol/L; Blood Urea Nitrogen 4 mg/dL (7-17); Calcium 9.4 mg/dL (8.4-10.2); Carbon Dioxide 25 mmol/L (22-30); Chloride 104 mmol/L (98-107); Glucose 94 mg/dL (74-99); Lipase 67 U/L (23-300); Non-African American GFR(CKD) >90 (>60 ml/min/1.73 sqM); Potassium 3.9 mmol/L (3.5-5.1); Sodium 137 mmol/L (137-145); Total Bilirubin 0.4 mg/dL (0.2-1.3); Total Protein 7.1 g/dL (6.3-8.2)
--- NOTE | 2021-08-21 01:23 | US ---
EXAMINATION TYPE: Transabdominal DATE OF EXAM: 08/21/2021 1:07 AM COMPARISON: NONE CLINICAL HISTORY: Abdominal pain. Pain. Hx miscarriage. . EXAM PERFORMED: Transabdominal (TA) EXAM MEASUREMENTS: GESTATIONAL AGE / DATING Physician Established: Pt unsure of exact dates, she believes dates are: (13 weeks/2 days) EDC: 02/24/2022. Dates by LMP: Unknown. Dates by First Scan: This is first scan. Dates by Current Scan for: (12 weeks/6 days) EDC: 02/27/2022 MATERNAL ANATOMY Uterus: 10.3 x 8.6 x 7.8 cm. Anteverted. Right Ovary: 3.3 x 1.9 x 1.4 cm. Left Ovary: 3.0 x 2.2 x 1.3 cm. Post CDS / Adnexa: Appears wnl. Presence of free fluid: None seen. Presence of corpus luteal cyst: Not seen. Presence of subchorionic bleed: Possible- Hypoechoic area seen inferior to gestational sac: 0.4 x 1.2 x 1.7 cm. -Hypoechoic/anechoic area seen within forming placental tissue: 1.0 x 1.2 x 1.6 cm. GESTATION / SURVEY CRL: 6.51 cm. (12 weeks/6 days) Yolk Sac (normal less than 6mm): 2.9 mm. Heart Rate: 168 bpm Rhythm: Normal IUP: Viable IUP Nuchal Translucency 10-14wks (normal less than 3mm): 1.4 mm. Age Appropriate Anatomy Cord Insertion: Limited visibility. Limbs: Visualized Calvarium: Visualized Date of LMP: Unknown. Beta HcG (if available): Not available. IMPRESSION: The ultrasound gestational age is 12 weeks and 6 days. No complicating process seen.
[2021-08-21 02:04] LABS: Appearance,Urine Clear (Clear); Bacteria,Urine Few /hpf; Bilirubin,Urine Negative (Negative); Blood,Urine Negative (Negative); Color,Urine Light Yellow; Glucose,Urine (UA) Negative (Negative); Ketones,Urine Negative (Negative); Leukocyte Esterase,Urine Moderate (Negative); Mucus,Urine Rare /hpf; Nitrite,Urine Negative (Negative); PH, Urine 6.5 (5.0-8.0); Protein,Urine Negative (Negative); Specific Gravity,Urine 1.009 (1.001-1.035); Squamous Epithelial Cell,Urine 3 /hpf (0-4); Urobilinogen,Urine <2.0 mg/dL (<2.0); WBC,Urine 19 /hpf (0-5)
[2021-08-21] MEDS ORDERED: CEPHALEXIN 500MG STARTER PACK 4 CAP BTL PO STA (02:13)
--- NOTE | 2021-08-21 02:16 | ED ---
Abdominal Pain HPI - General Chief Complaint: Abdominal Pain Stated Complaint: 12wks preg, abdominal pain, headache Time Seen by Provider: 08/20/21 23:58 Source: patient Mode of arrival: ambulatory Limitations: no limitations - History of Present Illness Initial Comments: 26 year-old female patient, 12 weeks , A1 presents to the emergency department for evaluation of upper and lower abdominal pain. States symptoms started around [address] home from work. States she does have headache as well. Reports persistent nausea with this . States she has had previous normal ultrasound. She will have her first appointment at [facility] next month. She is unsure which physician she will be seeing. She denies any fever or chills. States she has had some nasal congestion and drainage. She denies cough. She is not vaccinated for COVID-19. She denies any constipation or diarrhea. Denies any hematuria, dysuria, urinary frequency, urinary urgency. Patient denies any recent rash, shortness of breath, chest pain, back pain, numbness, tingling, dizziness, weakness, headache, visual changes, or any other complaints. - Related Data Home Medications Medication Instructions Recorded Confirmed Escitalopram Oxalate [Lexapro] 10 mg PO DAILY 03/20/18 11/14/18 hydrOXYzine pamoate [Vistaril] 50 mg PO HS 03/20/18 11/14/18 guaiFENesin-Coden 100-10MG/5ML 10 ml PO Q6H PRN 11/14/18 11/14/18 [Robitussin AC] Previous Rx's Medication Instructions Recorded OXcarbazepine [Trileptal] 300 mg PO BID #60 tab 09/24/16 Acetaminophen Tab [Tylenol Tab] 500 mg PO Q6H PRN 5 Days #20 tablet 04/28/18 guaiFENesin SYRUP 100MG/5ML 10 ml PO Q8H 5 Days #1 bottle 11/14/18 [Robitussin] Cephalexin [Keflex] 500 mg PO Q6HR #28 cap 02/10/19 Cephalexin [Keflex] 500 mg PO Q6HR #28 cap 02/10/19 Sulfamethox-Tmp 800-160Mg [Bactrim 1 tab PO Q12HR #14 tab 02/10/19 DS 800-160 mg] Sulfamethox-Tmp 800-160Mg [Bactrim 1 tab PO Q12HR #14 tab 02/10/19 DS 800-160 mg] Clindamycin [Cleocin] 450 mg PO TID 7 Days capsule 06/12/20 Ondansetron [Zofran ODT] 4 mg PO Q8HR PRN #10 tab 10/07/20 Cephalexin [Keflex] 500 mg PO Q6H #28 cap 08/21/21 Famotidine [Pepcid] 20 mg PO HS #30 tablet 08/21/21 Metoclopramide [Reglan] 10 mg PO Q8H PRN #10 tab 08/21/21 Allergies Allergy/AdvReac Type Severity Reaction Status Date / Time aspirin AdvReac headache Verified 08/20/21 23:55 Milk Containing Products AdvReac Unknown Verified 08/20/21 23:55 [Dairy] nickel AdvReac Unknown Verified 08/20/21 23:55 Review of Systems ROS Statement: Those systems with pertinent positive or pertinent negative responses have been documented in the HPI. ROS Other: All systems not noted in ROS Statement are negative. Past Medical History Past Medical History: Asthma, GERD/Reflux, Seizure Disorder History of Any Multi-Drug Resistant Organisms: None Reported Past Surgical History: Orthopedic Surgery Additional Past Surgical History / Comment(s): SPIDER BITE/ABSCESS DRAINED, left leg lamonte,pins Past Psychological History: ADD/ADHD, Anxiety, Bipolar, Depression Smoking Status: Current some day smoker, Vaper Past Alcohol Use History: Occasional Past Drug Use History: Marijuana General Exam Limitations: no limitations General appearance: alert, in no apparent distress, other (This is a well- developed, well-nourished adult female in no acute distress. Vital signs upon presentation are temperature 97.8F, pulse 104, respirations 20, blood pressure 115/78, pulse ox 99% on room air.) Eye exam: Present: normal appearance, PERRL, EOMI. Absent: scleral icterus, conjunctival injection, periorbital swelling ENT exam: Present: normal exam, normal oropharynx, mucous membranes moist Respiratory exam: Present: normal lung sounds bilaterally. Absent: respiratory distress, wheezes, rales, rhonchi, stridor Cardiovascular Exam: Present: normal rhythm, tachycardia, normal heart sounds. Absent: systolic murmur, diastolic murmur, rubs, gallop, clicks GI/Abdominal exam: Present: soft, tenderness (mid epigastric, suprapubic), normal bowel sounds. Absent: distended, guarding, rebound, rigid Neurological exam: Present: alert, oriented X3, CN II-XII intact Psychiatric exam: Present: normal affect, normal mood Skin exam: Present: warm, dry, intact, normal color. Absent: rash Course Vital Signs 08/20/21 23:51 Temperature 97.8 F Pulse Rate 104 H Respiratory 20 Rate Blood Pressure 115/78 O2 Sat by Pulse 99 Oximetry Medical Decision Making - Medical Decision Making 26-year-old female patient presented to the emergency department for evaluation of upper and lower abdominal pain as well as headache. Physical examination did reveal midepigastric and lower abdominal tenderness. Labs reviewed and revealed white blood cell count at 15.0 consistent with current state. Urinalysis did show 19 white blood cells, moderate leukocyte esterase, and few bacteria. She'll be started on antibiotic for UTI. Given Pepcid. Upon reevaluation states she is feeling better. Ultrasound showed no compared getting process at 12 weeks 6 day fetus. She'll be discharged follow-up the OBGYN for recheck as soon as possible. She is instructed to follow up with her primary care physician. She verbalizes understanding and agrees with this plan. My attending is Dr. Valdez. - Lab Data Result diagrams: 08/21/21 00:37 08/21/21 00:37 Lab Results 08/21/21 08/21/21 08/21/21 Range/Units 00:37 00:37 01:19 WBC 15.0 H (3.8-10.6) k/uL RBC 4.41 (3.80-5.40) m/uL Hgb 13.4 (11.4-16.0) gm/dL Hct 39.6 (34.0-46.0) % MCV 89.8 (80.0-100.0) fL MCH 30.4 (25.0-35.0) pg MCHC 33.8 (31.0-37.0) g/dL RDW 12.4 (11.5-15.5) % Plt Count 283 (150-450) k/uL MPV 8.3 Neutrophils % 67 % Lymphocytes % 22 % Monocytes % 4 % Eosinophils % 5 % Basophils % 1 % Neutrophils # 10.1 H (1.3-7.7) k/uL Lymphocytes # 3.3 (1.0-4.8) k/uL Monocytes # 0.6 (0-1.0) k/uL Eosinophils # 0.8 H (0-0.7) k/uL Basophils # 0.1 (0-0.2) k/uL Sodium 137 (137-145) mmol/L Potassium 3.9 (3.5-5.1) mmol/L Chloride 104 (98-107) mmol/L Carbon Dioxide 25 (22-30) mmol/L Anion Gap 8 mmol/L BUN 4 L (7-17) mg/dL Creatinine 0.48 L (0.52-1.04) mg/dL Est GFR (CKD-EPI)AfAm >90 (>60 ml/min/1.73 sqM) Est GFR (CKD-EPI)NonAf >90 (>60 ml/min/1.73 sqM) Glucose 94 (74-99) mg/dL Calcium 9.4 (8.4-10.2) mg/dL Total Bilirubin 0.4 (0.2-1.3) mg/dL AST 21 (14-36) U/L ALT 15 (4-34) U/L Alkaline Phosphatase 61 (38-126) U/L Total Protein 7.1 (6.3-8.2) g/dL Albumin 4.0 (3.5-5.0) g/dL Lipase 67 (23-300) U/L Urine Color Light Yellow Urine Appearance Clear (Clear) Urine pH 6.5 (5.0-8.0) Ur Specific [place] 1.009 (1.001-1.035) Urine Protein Negative (Negative) Urine Glucose (UA) Negative (Negative) Urine Ketones Negative (Negative) Urine Blood Negative (Negative) Urine Nitrite Negative (Negative) Urine Bilirubin Negative (Negative) Urine Urobilinogen <2.0 (<2.0) mg/dL Ur Leukocyte Esterase Moderate H (Negative) Urine WBC 19 H (0-5) /hpf Ur Squamous Epith Cells 3 (0-4) /hpf Urine Bacteria Few H (None) /hpf Urine Mucus Rare H (None) /hpf - Radiology Data Radiology results: report reviewed Ultrasound was obtained. Report was reviewed in its entirety. Impression by Dr. Gray shows ultrasound gestational age of 12 weeks and 6 days. No complicating process seen. Heart rate is 168. Disposition Clinical Impression: UTI (urinary tract infection), Abdominal pain during Disposition: HOME SELF-CARE Condition: Good Instructions (If sedation given, give patient instructions): Abdominal Pain in (ED), Urinary Tract Infection in (ED) Additional Instructions: Take antibiotic prescription in full. Take pepcid daily. Follow up with the primary care physician for recheck in 1-2 days. Follow up with [facility] for recheck as soon as possible. Return for any new, worsening, or concerning symptoms. Prescriptions: Cephalexin [Keflex] 500 mg PO Q6H #28 cap Famotidine [Pepcid] 20 mg PO HS #30 tablet Metoclopramide [Reglan] 10 mg PO Q8H PRN #10 tab PRN Reason: Vomiting Is patient prescribed a controlled substance at d/c from ED?: No Referrals: Mykel Ramos Jr, [Primary Care Provider] - 1-2 days Time of Disposition: 02:15
== END 2021-08-21 02:37 | disposition home or self-care (01) ==
LOC: EC 23:44
DX: O23.41 Unspecified infection of urinary tract in pregnancy, first trimester (principal); N39.0 Urinary tract infection, site not specified; O99.511 Diseases of the respiratory system complicating pregnancy, first trimester; J45.909 Unspecified asthma, uncomplicated; O99.611 Diseases of the digestive system complicating pregnancy, first trimester; K21.9 Gastro-esophageal reflux disease without esophagitis; O99.351 Diseases of the nervous system complicating pregnancy, first trimester; G40.909 Epilepsy, unspecified, not intractable, without status epilepticus; O99.341 Other mental disorders complicating pregnancy, first trimester; F31.9 Bipolar disorder, unspecified; F41.9 Anxiety disorder, unspecified; O99.331 Smoking (tobacco) complicating pregnancy, first trimester; F17.200 Nicotine dependence, unspecified, uncomplicated; O99.321 Drug use complicating pregnancy, first trimester; F12.90 Cannabis use, unspecified, uncomplicated; Z79.899 Other long term (current) drug therapy; Z3A.12 12 weeks gestation of pregnancy
CPT/HCPCS: 36415; 76801; 76813; 80053; 81001; 83690; 85025; 87077; 87086; 87186; 87635; 96361; 96374; 99284

== ENCOUNTER → 2021-10-06 | Outpatient (CLI) | payer OTHER ==
[2021-10-07 00:29] LABS: Amorphous Sediment,Urine Occasional /hpf; Appearance,Urine Cloudy (Clear); Bacteria,Urine Rare /hpf; Bilirubin,Urine Negative (Negative); Blood,Urine Negative (Negative); Color,Urine Yellow; Glucose,Urine (UA) Negative (Negative); Ketones,Urine Negative (Negative); Leukocyte Esterase,Urine Negative (Negative); Mucus,Urine Rare /hpf; Nitrite,Urine Negative (Negative); Protein,Urine Trace (Negative); RBC,Urine <1 /hpf (0-5); Specific Gravity,Urine 1.021 (1.001-1.035); Squamous Epithelial Cell,Urine 5 /hpf (0-4); Urobilinogen,Urine <2.0 mg/dL (<2.0); WBC,Urine 1 /hpf (0-5)
[2021-10-07 01:07] VITALS: BP 111/69; PULSE 124; RESP 18; TEMP 98.4
--- NOTE | 2021-10-07 06:52 | P.MSEPDOC ---
Presenting Problems - Arrival Data Date of Arrival on Unit: 10/06/21 Time of Arrival on Unit: 23:23 Mode of Transport: Wheelchair - Complaint OB-Reason for Admission/Chief Complaint: Headache, Other Comment: body aches, congestion, cough, fever, SOB Medical History - Information : 2 Para: 0 Term: 0 : 0 Abortions: Spontaneous or Elective: 1 Number of Living Children: 0 - Gestational Age Gestational Age by RAMSES (wks/days): 20 Weeks and 0 Days Review of Systems - Review of Systems Constitutional: No problems Breast: No problems ENT: No problems Cardiovascular: No problems Respiratory: LAURA Gastrointestinal: No problems Genitourinary: No problems Musculoskeletal: No problems Neurological: No problems Skin: No problems Vital Signs - Temperature Temperature: 98.4 F Temperature Source: Oral - Pulse Right Pulse Rate: 124 Pulse Assessment Method: Pulse Oximetry - Respirations Respiratory Rate: 18 Oxygen Delivery Method: Room Air O2 Sat by Pulse Oximetry: 99 - Blood Pressure Right Arm Blood Pressure: 111/69 Blood Pressure Mean: 83 Blood Pressure Source: Automatic Cuff Physician Notification - Physician Notified Physician Notified Date: 10/06/21 Physician Notified Time: 23:39 Physician: Tyler Palacios New Order Received: Yes - Notification Comment Comment: Dr. Palacios notified of pt's arrival to triage. RN reported on maternal VS, maternal and status, and FHT doppler. Orders for UA to be collected and sent, if negative, pt can be further evaluated for symptoms in the ER. Maternal Triage Index - Maternal Triage Index Presenting for scheduled procedure w/no complaint: No - Stat/Priority 1 Stat Priority 1: No - Urgent/Priority 2 Urgent Priority 2: Yes Provider Notified: Tyler Palacios Provider Notified Time: 23:39 Criteria Met for Priority 2: HR >120, SOB - Prompt/Priority 3 Prompt Priority 3: No - Non-Urgent/Priority 4 Non-Urgent Priority 4: No Disposition - Disposition OB Disposition: Transfer to other dept./facility Transferred to:: ER Discharge Date: 10/07/21 Discharge Time: 00:40 I agree with the RN Medical Screening Exam: Yes Case reviewed; plan agreed upon as documented in EMR&OBIX.: Yes Diagnosis: FALSE LABOR BEFORE 37 COMPLETED WEEKS OF GEST, THIRD TRI (Patient presented from the emergency department with complaints of body aches pelvic pain fever and upper respiratory symptoms. There is no evidence of contractions and patient was subsequently sent back to the emergency department for evaluation of possible Covid. Patient's Covid test returned positive she subsequent treated in the emergency department.)
== END ==
LOC: FBPOP 23:23
PROVIDERS: ATTEND Obstetrics & Gynecology
DX: O47.03 False labor before 37 completed weeks of gestation, third trimester (principal); O98.512 Other viral diseases complicating pregnancy, second trimester; U07.1 COVID-19; Z3A.20 20 weeks gestation of pregnancy; Z88.6 Allergy status to analgesic agent; Z91.011 Allergy to milk products; Z88.9 Allergy status to unspecified drugs, medicaments and biological substances
CPT/HCPCS: 81001; 99213

== ENCOUNTER 2021-10-07 00:44 | Emergency (ER) | payer OTHER ==
[2021-10-07] MEDS ORDERED: SODIUM CHLORIDE 0.9% 1,000 ML IV ONE (02:44)
[2021-10-07] MEDS ORDERED: ACETAMINOPHEN TAB 500 MG TAB PO STA (02:46)
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
[2021-10-07 03:17] LABS: Basophils % (A) 1 %; Eosinophils # (A) 0.1 k/uL (0-0.7); Eosinophils % (A) 1 %; HCT 34.7 % (34.0-46.0); Lymphocytes # (A) 0.8 k/uL (1.0-4.8); Lymphocytes % (A) 10 %; MCH 31.8 pg (25.0-35.0); MCHC 34.5 g/dL (31.0-37.0); MCV 92.2 fL (80.0-100.0); Mean Platelet Volume 8.5; Monocytes # (A) 0.5 k/uL (0-1.0); Monocytes % (A) 7 %; Neutrophils # (A) 6.1 k/uL (1.3-7.7); Neutrophils % (A) 80 %; Platelet Count 221 k/uL (150-450); RBC 3.77 m/uL (3.80-5.40); RDW 13.5 % (11.5-15.5); WBC 7.7 k/uL (3.8-10.6)
[2021-10-07 03:25] LABS: ALT 26 U/L (4-34); AST 39 U/L (14-36); African American GFR (CKD) >90 (>60 ml/min/1.73 sqM); Albumin 3.4 g/dL (3.5-5.0); Alkaline Phosphatase 70 U/L (38-126); Anion Gap 10 mmol/L; Blood Urea Nitrogen 7 mg/dL (7-17); Calcium 8.5 mg/dL (8.4-10.2); Carbon Dioxide 18 mmol/L (22-30); Chloride 105 mmol/L (98-107); Glucose 91 mg/dL (74-99); Non-African American GFR(CKD) >90 (>60 ml/min/1.73 sqM); Potassium 3.8 mmol/L (3.5-5.1); Sodium 133 mmol/L (137-145); Total Bilirubin 0.4 mg/dL (0.2-1.3); Total Protein 6.6 g/dL (6.3-8.2)
[2021-10-07] MEDS ORDERED: SOTROVIMAB (EUA) 500 MG in SODIUM CHLORIDE 0.9% 100 ML IVPB ONE (03:30)
[2021-10-07] MEDS ORDERED: SODIUM CHLORIDE 0.9% 50 ML IVPB ONE (03:30)
[2021-10-07 03:52] LABS: Appearance,Urine Clear (Clear); Bilirubin,Urine Negative (Negative); Blood,Urine Negative (Negative); Color,Urine Yellow; Glucose,Urine (UA) Negative (Negative); Ketones,Urine 2+ (Negative); Leukocyte Esterase,Urine Negative (Negative); Nitrite,Urine Negative (Negative); PH, Urine 6.5 (5.0-8.0); Protein,Urine Negative (Negative); Specific Gravity,Urine 1.015 (1.001-1.035); Urobilinogen,Urine <2.0 mg/dL (<2.0)
[2021-10-07 05:40] VITALS: BP 108/80; PULSE 92; RESP 19; TEMP 98.8
== END 2021-10-07 05:55 | disposition home or self-care (01) ==
LOC: EC 00:44
DX: O98.512 Other viral diseases complicating pregnancy, second trimester (principal); O99.512 Diseases of the respiratory system complicating pregnancy, second trimester; U07.1 COVID-19; J45.909 Unspecified asthma, uncomplicated; K21.9 Gastro-esophageal reflux disease without esophagitis; F90.9 Attention-deficit hyperactivity disorder, unspecified type; F41.9 Anxiety disorder, unspecified; F31.9 Bipolar disorder, unspecified; Z3A.20 20 weeks gestation of pregnancy; Z87.891 Personal history of nicotine dependence
CPT/HCPCS: 99284; 96360; 36415; 80053; 85025; 81003; 87635; Q0247

== ENCOUNTER 2022-01-24 22:00 | Outpatient (CLI) | payer OTHER ==
[2022-01-25 01:29] VITALS: BP 126/77; PULSE 102; RESP 16; TEMP 97.9
--- NOTE | 2022-01-26 18:02 | P.MSEPDOC ---
Presenting Problems - Arrival Data Date of Arrival on Unit: 01/24/22 Time of Arrival on Unit: 22:00 Mode of Transport: Ambulatory - Complaint OB-Reason for Admission/Chief Complaint: Possible Onset of Labor Comment: Patient states that she has been having back pain and pelvic pain since 5pm today 01/24/2022 Medical History - Information : 1 Para: 0 Term: 0 : 0 Abortions: Spontaneous or Elective: 0 Number of Living Children: 0 - Gestational Age Gestational Age by RAMSES (wks/days): 35 Weeks and 5 Days Review of Systems - Review of Systems Constitutional: No problems Breast: No problems ENT: No problems Cardiovascular: No problems Respiratory: No problems Gastrointestinal: No problems Genitourinary: No problems Musculoskeletal: No problems Neurological: No problems Skin: No problems Vital Signs - Temperature Temperature: 97.9 F Temperature Source: Oral - Pulse Pulse Oximetery Pulse Rate: 102 Pulse Assessment Method: Pulse Oximetry - Respirations Respiratory Rate: 16 Oxygen Delivery Method: Room Air - Blood Pressure Right Arm Blood Pressure: 126/77 Blood Pressure Mean: 93 Blood Pressure Source: Automatic Cuff Medical Screen Scoring - Cervical Exam Dilation (cm): 1 Effacement (%): 60 Station: -2 Membranes: Intact - Uterine Contractions Resting: Soft to palpation - Assessment - Baby A Baseline FHR: 135 Heart Rate - NICHD Category: Category I (Normal) NST: Reactive Physician Notification - Physician Notified Physician Notified Date: 01/25/22 Physician Notified Time: 23:20 Physician: Dee Wright New Order Received: Yes - Notification Comment Comment: Educated patient regarding contractions and labor. Patient to go home and follow up with next appt with Dr. Wright. Maternal Triage Index - Urgent/Priority 2 Urgent Priority 2: Yes Provider Notified: Dee Wright Provider Notified Time: 23:20 Criteria Met for Priority 2: Patient c/o lower back pain and lower abdominal pain that are intermittent Patient states pain started around 5pm 01/24/2022. Disposition - Disposition OB Disposition: Discharge to home Discharge Date: 01/25/22 Discharge Time: 23:34 I agree with the RN Medical Screening Exam: Yes Case reviewed; plan agreed upon as documented in EMR&OBIX.: Yes Diagnosis: FALSE LABOR BEFORE 37 COMPLETED WEEKS OF GEST, THIRD TRI
== END 2022-01-24 23:34 | disposition home or self-care (01) ==
LOC: FBPOP 22:00
PROVIDERS: ATTEND Obstetrics & Gynecology
DX: O47.03 False labor before 37 completed weeks of gestation, third trimester (principal); Z3A.35 35 weeks gestation of pregnancy
CPT/HCPCS: 59025; G0463; 99213

== ENCOUNTER 2022-02-04 17:27 | Outpatient (CLI) | payer OTHER ==
[2022-02-04 18:14] LABS: Basophils # (A) 0.1 k/uL (0-0.2); Basophils % (A) 1 %; Eosinophils # (A) 0.9 k/uL (0-0.7); Eosinophils % (A) 7 %; HCT 36.9 % (34.0-46.0); HGB 12.3 gm/dL (11.4-16.0); Lymphocytes # (A) 2.7 k/uL (1.0-4.8); Lymphocytes % (A) 20 %; MCH 30.8 pg (25.0-35.0); MCHC 33.3 g/dL (31.0-37.0); MCV 92.7 fL (80.0-100.0); Mean Platelet Volume 8.7; Monocytes # (A) 0.7 k/uL (0-1.0); Monocytes % (A) 5 %; Neutrophils % (A) 66 %; Platelet Count 291 k/uL (150-450); RBC 3.98 m/uL (3.80-5.40); RDW 12.8 % (11.5-15.5); WBC 13.7 k/uL (3.8-10.6)
[2022-02-04 18:17] LABS: Appearance,Urine Clear (Clear); Bilirubin,Urine Negative (Negative); Blood,Urine Negative (Negative); Color,Urine Yellow; Glucose,Urine (UA) Negative (Negative); Ketones,Urine Negative (Negative); Leukocyte Esterase,Urine Negative (Negative); Nitrite,Urine Negative (Negative); PH, Urine 6.5 (5.0-8.0); Protein,Urine Negative (Negative); Specific Gravity,Urine 1.011 (1.001-1.035); Urobilinogen,Urine <2.0 mg/dL (<2.0)
[2022-02-04 18:20] LABS: ALT 18 U/L (4-34); AST 27 U/L (14-36); African American GFR (CKD) >90 (>60 ml/min/1.73 sqM); Blood Urea Nitrogen 5 mg/dL (7-17); LDH 431 U/L (313-618); Non-African American GFR(CKD) >90 (>60 ml/min/1.73 sqM); Uric Acid 4.3 mg/dL (3.7-7.4)
[2022-02-04 18:28] LABS: Creatinine,Urine Random 94.8 mg/dL; Protein/Creatinine Ratio,Urine 0.158
[2022-02-04 20:47] VITALS: BP 118/74; PULSE 106; RESP 16; TEMP 98.6
== END 2022-02-04 19:15 | disposition home or self-care (01) ==
LOC: FBPOP 17:27
PROVIDERS: ATTEND Obstetrics & Gynecology
DX: O13.3 Gestational [pregnancy-induced] hypertension without significant proteinuria, third trimester (principal); Z3A.37 37 weeks gestation of pregnancy; Z88.6 Allergy status to analgesic agent; Z91.011 Allergy to milk products; Z88.9 Allergy status to unspecified drugs, medicaments and biological substances; F17.200 Nicotine dependence, unspecified, uncomplicated
CPT/HCPCS: 36415; 59025; 81003; 82565; 82570; 83615; 84156; 84450; 84460; 84520; 84550; 85025

== ENCOUNTER 2022-02-18 23:20 | Outpatient (CLI) | payer OTHER ==
[2022-02-19 00:59] VITALS: BP 130/76; PULSE 108; RESP 16; TEMP 98.3
--- NOTE | 2022-02-19 07:00 | P.MSEPDOC ---
Presenting Problems - Arrival Data Date of Arrival on Unit: 02/18/22 Time of Arrival on Unit: 23:20 Mode of Transport: Wheelchair - Complaint OB-Reason for Admission/Chief Complaint: Possible Onset of Labor, Pain Comment: C/O abdominal pain, back pain and shakiness Medical History - Information : 2 Para: 0 Term: 0 : 0 Abortions: Spontaneous or Elective: 1 Number of Living Children: 0 - Gestational Age Gestational Age by RAMSES (wks/days): 39 Weeks and 2 Days - History Complications: Smoker Comment: shalom Review of Systems - Review of Systems Constitutional: No problems Breast: No problems ENT: No problems Cardiovascular: No problems Respiratory: No problems Gastrointestinal: No problems Genitourinary: No problems Musculoskeletal: No problems Neurological: No problems Skin: No problems Vital Signs - Temperature Temperature: 98.3 F Temperature Source: Temporal Artery Scan - Pulse Right Supine Brachial Pulse Rate: 108 Pulse Assessment Method: Automatic Cuff - Respirations Respiratory Rate: 16 Oxygen Delivery Method: Room Air O2 Sat by Pulse Oximetry: 98 - Blood Pressure Right Arm Supine Blood Pressure: 130/76 Blood Pressure Mean: 94 Blood Pressure Source: Automatic Cuff Medical Screen Scoring - Cervical Exam Dilation (cm): 0.5 Effacement (%): 50 Station: -2 Membranes: Intact - Uterine Contractions Frequency From (mins): 2 Frequency To (mins): 3 Duration From (seconds): 40 Duration To (seconds): 50 Intensity: Mild Resting: Soft to palpation - Assessment - Baby A Baseline FHR: 125 Heart Rate - NICHD Category: Category I (Normal) NST: Reactive Physician Notification - Physician Notified Physician Notified Date: 02/19/22 Physician Notified Time: 00:04 Physician: Tyler Palacios New Order Received: Yes - Notification Comment Comment: Discharge to home Maternal Triage Index - Maternal Triage Index Presenting for scheduled procedure w/no complaint: No - Stat/Priority 1 Stat Priority 1: No - Urgent/Priority 2 Urgent Priority 2: No - Prompt/Priority 3 Prompt Priority 3: No - Non-Urgent/Priority 4 Non-Urgent Priority 4: Yes Criteria Met for Priority 4: c/o early labor signs - Scheduled/Requesting Priority 5 Scheduled/Requesting Priority 5: No Disposition - Disposition OB Disposition: Discharge to home Discharge Date: 02/19/22 Discharge Time: 00:09 I agree with the RN Medical Screening Exam: Yes Case reviewed; plan agreed upon as documented in EMR&OBIX.: Yes Diagnosis: FALSE LABOR AT OR AFTER 37 COMPLETED WEEKS OF GESTATION
== END 2022-02-19 00:09 | disposition home or self-care (01) ==
LOC: FBPOP 23:20
PROVIDERS: ATTEND Obstetrics & Gynecology
DX: O47.1 False labor at or after 37 completed weeks of gestation (principal); Z3A.39 39 weeks gestation of pregnancy; Z87.891 Personal history of nicotine dependence; Z88.6 Allergy status to analgesic agent; Z91.011 Allergy to milk products; Z88.9 Allergy status to unspecified drugs, medicaments and biological substances
CPT/HCPCS: 59025; G0463; 99213

== ENCOUNTER 2022-02-20 01:41 | Outpatient (CLI) | payer OTHER ==
[2022-02-20 02:34] VITALS: BP 130/76; PULSE 103; RESP 16; TEMP 97.4
--- NOTE | 2022-02-20 17:47 | P.MSEPDOC ---
Presenting Problems - Arrival Data Date of Arrival on Unit: 02/20/22 Time of Arrival on Unit: 01:41 Mode of Transport: Ambulatory - Complaint OB-Reason for Admission/Chief Complaint: Rule Out SROM Comment: Patient states water broke at 115, clear fluid in a big gush. Patient states no longer leaking. Medical History - Information : 2 Para: 0 Term: 0 : 0 Abortions: Spontaneous or Elective: 1 Number of Living Children: 0 - Gestational Age Gestational Age by RAMSES (wks/days): 39 Weeks and 3 Days Review of Systems - Review of Systems Constitutional: No problems Breast: No problems ENT: No problems Cardiovascular: No problems Respiratory: No problems Gastrointestinal: No problems Genitourinary: No problems Musculoskeletal: No problems Neurological: No problems Skin: No problems Vital Signs - Temperature Temperature: 97.4 F Temperature Source: Temporal Artery Scan - Pulse Right Brachial Pulse Rate: 103 Pulse Assessment Method: Automatic Cuff - Respirations Respiratory Rate: 16 Oxygen Delivery Method: Room Air O2 Sat by Pulse Oximetry: 97 - Blood Pressure Right Arm Blood Pressure: 130/76 Blood Pressure Mean: 94 Blood Pressure Source: Automatic Cuff Medical Screen Scoring - Cervical Exam Dilation (cm): 0.5 Membranes: Intact - Assessment - Baby A Baseline FHR: 135 Heart Rate - NICHD Category: Category I (Normal) NST: Reactive Physician Notification - Physician Notified Physician Notified Date: 02/20/22 Physician Notified Time: 02:13 Physician: Karma Tinoco Order Received: Yes - Notification Comment Comment: RN spoke with Dr. Burleson. RN stated that patient believed her water broke around. 115am, clear fluid, an big gush. Patient stated she was no longer leaking fluid. Amnisure collected, negative. Cervical exam was fingertip and thick, unchanged from. prior exam on February 18. Reactive NST, no contractions on the monitor. Abdomen soft to. palpation. Dr. Tinoco states patient may be di scharged home. Patient seems to have some. cognitive delays. RN went over discharge instructions thoroughly and patient stated understanding. Maternal Triage Index - Maternal Triage Index Presenting for scheduled procedure w/no complaint: No - Stat/Priority 1 Stat Priority 1: No - Urgent/Priority 2 Urgent Priority 2: No - Prompt/Priority 3 Prompt Priority 3: No - Non-Urgent/Priority 4 Non-Urgent Priority 4: Yes Criteria Met for Priority 4: 39 3/7 weeks c/o SROM Disposition - Disposition OB Disposition: Discharge to home Discharge Date: 02/20/22 Discharge Time: 02:30 I agree with the RN Medical Screening Exam: Yes Case reviewed; plan agreed upon as documented in EMR&OBIX.: Yes Diagnosis: ACUTE VAGINITIS
== END 2022-02-20 02:30 | disposition home or self-care (01) ==
LOC: FBPOP 01:41
PROVIDERS: ATTEND Obstetrics & Gynecology
DX: O99.891 Other specified diseases and conditions complicating pregnancy (principal); N76.0 Acute vaginitis; Z3A.39 39 weeks gestation of pregnancy; Z88.6 Allergy status to analgesic agent; Z91.09 Other allergy status, other than to drugs and biological substances; Z91.011 Allergy to milk products
CPT/HCPCS: 59025; 84112; G0463; 99213

== ENCOUNTER 2022-03-02 05:59 | Inpatient (IN) | payer OTHER ==
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
[2022-03-02] MEDS ORDERED: LIDOCAINE 0.5% (PF) 5 MG/ML (50 ML SDV) SQ PRN (06:16)
[2022-03-02] MEDS ORDERED: TERBUTALINE 1 MG/ML VIAL SQ PRN (06:16)
[2022-03-02] MEDS ORDERED: CARBOPROST TROMETHAMINE 250 MCG/ML 1 ML AMP IM PRN (06:16)
[2022-03-02] MEDS ORDERED: OXYTOCIN 30 UNITS/500 ML NS 30 UNIT in SALINE 1 500ML.BAG IV SCH ×2 (06:16→23:22)
[2022-03-02] MEDS ORDERED: METHYLERGONOVINE 0.2 MG/ML 1 ML AMP IM PRN (06:16)
[2022-03-02] MEDS ORDERED: LIDOCAINE 1% (10MG/ML) FOR IV START INTRADERMA PRN (06:16)
[2022-03-02] MEDS ORDERED: OXYTOCIN 10 UNIT/ML 1 ML VIAL IM PRN (06:16)
[2022-03-02] MEDS: LACTATED RINGERS 1,000 ML IV SCH ×2 (06:29→13:17)
[2022-03-02 06:39] LABS: Basophils # (A) 0.1 k/uL (0-0.2); Basophils % (A) 1 %; Eosinophils # (A) 0.6 k/uL (0-0.7); Eosinophils % (A) 4 %; HCT 38.4 % (34.0-46.0); HGB 12.6 gm/dL (11.4-16.0); Lymphocytes # (A) 3.4 k/uL (1.0-4.8); Lymphocytes % (A) 21 %; MCH 30.2 pg (25.0-35.0); MCHC 32.9 g/dL (31.0-37.0); MCV 91.6 fL (80.0-100.0); Mean Platelet Volume 8.3; Monocytes # (A) 0.8 k/uL (0-1.0); Monocytes % (A) 5 %; Neutrophils # (A) 11.3 k/uL (1.3-7.7); Neutrophils % (A) 69 %; Platelet Count 318 k/uL (150-450); RBC 4.19 m/uL (3.80-5.40); WBC 16.3 k/uL (3.8-10.6)
[2022-03-02] MEDS: BUTORPHANOL 1 MG/ML 1 ML VIAL IV PRN ×2 (09:45→11:57)
[2022-03-02] MEDS ORDERED: SODIUM CHLORIDE 0.9% 100 ML BAG ONE (13:20)
[2022-03-02] MEDS ORDERED: ROPIVACAINE 5 MG/ML 20 ML AMPULE ONE (13:20)
[2022-03-02] MEDS ORDERED: fentaNYL (PF) 50 MCG/ML 5 ML AMP ONE (13:20)
[2022-03-02] MEDS ORDERED: CITRIC ACID-SODIUM CITRATE 15 ML CUP PO ONE (14:50)
[2022-03-02] MEDS ORDERED: PHENYLEPHRINE-0.9% NACL SYG 1,000 MCG/10 ML SYRINGE ONE (22:15)
[2022-03-02] MEDS ORDERED: fentaNYL (PF) 50 MCG/ML 2 ML AMP ONE (22:15)
[2022-03-02] MEDS ORDERED: OXYTOCIN 10 UNIT/ML 1 ML VIAL ONE (22:15)
[2022-03-02] MEDS ORDERED: MORPHINE SULFATE (PF) 0.3 MG/0.3 ML SYR ONE (22:15)
[2022-03-02] MEDS ORDERED: ONDANSETRON 4 MG/2 ML VIAL ONE (22:15)
[2022-03-02] MEDS ORDERED: KETOROLAC 15 MG/ML 1 ML VIAL ONE (22:15)
[2022-03-02] MEDS ORDERED: diphenhydrAMINE 50 MG CAP PO PRN (23:22)
[2022-03-02] MEDS ORDERED: ZOLPIDEM 5 MG TAB PO PRN (23:22)
[2022-03-02] MEDS ORDERED: HYDROmorphone 0.5 MG/0.5 ML SYRINGE IVP PRN (23:22)
[2022-03-02] MEDS ORDERED: NALOXONE 0.4 MG/ML 1 ML VIAL IV PRN (23:22)
[2022-03-02] MEDS ORDERED: METOCLOPRAMIDE 5 MG/ML 2 ML VIAL IVP PRN (23:22)
[2022-03-02] MEDS ORDERED: LANOLIN CREAM 5 GM TUBE TOPICAL PRN (23:22)
[2022-03-02] MEDS ORDERED: ONDANSETRON 4 MG/2 ML VIAL IVP PRN (23:22)
[2022-03-02] MEDS ORDERED: HYDROmorphone PCA 10 MG/50 ML BAG IV PRN (23:22)
[2022-03-02] MEDS ORDERED: diphenhydrAMINE 25 MG CAP PO PRN (23:22)
[2022-03-02] MEDS ORDERED: HYDROmorphone 1 MG/ML 1 ML SYRINGE IVP PRN (23:22)
[2022-03-02] MEDS ORDERED: diphenhydrAMINE 50 MG/ML 1 ML VIAL IVP PRN ×2 (23:22)
--- NOTE | 2022-03-02 23:33 | P.OP ---
Date of Procedure: 03/02/22 Preoperative Diagnosis: 1. Intrauterine at 40-6/7 weeks. 2. Failure to descend. 3. Maternal exhaustion. Postoperative Diagnosis: Same Procedure(s) Performed: Primary low transverse section Anesthesia: epidural (Duramorph) Surgeon: Dee Wright Activity Aide #1: Jennifer Gill Estimated Blood Loss (ml): 460 Pathology: other (Placenta) Condition: stable Disposition: floor Indications for Procedure: This is a 26-year-old female 2 para 0 with an estimated date of confinement of 02/24/2022, estimated gestational age of 40-6/7 weeks, who presented for induction of labor. She underwent oxytocin induction of labor and artificial rupture membranes with clear fluid noted. She progressed in labor and did receive epidural anesthesia. She progressed to complete dilation and began pushing. She pushed for approximately 2-1/2 hours and was able to bring the baby's head down but a large amount of caput was forming and she stated that she could not push any further and requested section. I have discussed the risks, benefits, and alternative therapies for the above- mentioned procedure and for both sedation/anesthesia as well as necessary blood products administration, if indicated, as they pertain to this patient. The patient has indicated her understanding and acceptance of the risks and procedures discussed. Operative Findings: A viable male infant is noted in the vertex presentation with scores of 6 at 1 minute 8 at 5 minutes and 9 at 10 minutes and weight of 8 lbs. 14 oz. Normal uterus tubes and ovaries are noted. Description of Procedure: The patient is taken to the operating room where she is placed in the dorsal supine position with leftward tilt after epidural anesthesia is bolused. She is prepped and draped in the normal sterile fashion. Skin was tested and found to be adequately anesthetized. A Pfannenstiel skin incision was made with a scalpel. A second knife was used to carry the incision down to the underlying layer of fascia. The fascia was nicked in the midline with a scalpel and then extended laterally bilaterally with Alfred scissors. The anterior lip of the fascia was grasped with 2 Karol clamps and then dissected off the underlying rectus muscle in the midline with Alfred scissors. The inferior aspect of the fascial incision was grasped with 2 Karol clamps and dissected off the underlying rectus muscle and the midline with Alfred scissors. Next the peritoneum layer was tented up with 2 hemostats and then entered sharply with the scalpel. The incision is extended superiorly and inferiorly with Metzenbaum scissors. Next a DeLee retractor is placed. The vesicouterine peritoneum is entered sharply with Metzenbaum scissors and extended laterally bilaterally with Metzenbaum scissors and then the bladder flap is pushed inferiorly. The lower uterine segment is incised in transverse fashion with the scalpel and then bluntly entered with a hemostat. Clear fluid is noted. The incision was then extended laterally bilaterally with 2 fingers. Next the 's head is delivered through the incision. Nose and mouth are bulb suctioned. The remainder of the is easily delivered and placed on mother's abdomen. Cord is clamped and cut. Infant is taken to warmer by nursing staff. Uterine fundus is gently massaged and placenta is delivered manually. Uterus is exteriorized and cleared of all clots and debris. Uterine incision is closed with 0 Vicryl suture in a running locked fashion. A second layer of 0 Vicryl suture is used in a running fashion for hemostasis. Once adequate hemostasis as assured, the vesicouterine peritoneum is reapproximated with 2-0 Vicryl suture in a running fashion. There is noted to be a small hematoma on the right side of the uterus near the incision. One more stitch is placed in the right side of the uterine incision for hemostasis. The hematoma is observed and no expansion is noted. Posterior cul-de-sac is suctioned of all clots and debris. Uterus is returned to the abdomen. Incision is noted to be hemostatic. Peritoneal layer is closed with 0 Vicryl suture in a running fashion. Muscle layer is reapproximated with 0 Vicryl suture in interrupted fashion. Fascia layer is then closed with 0 PDS suture with 2 sutures meeting in the midline and the knots buried in either side and in the midline. The subcutaneous tissue was then closed with 2-0 Vicryl suture. Skin layer was then closed with марина. All sponge and needle counts are correct. The patient is taken to recovery room in stable condition. Baby is taken to level I nursery for observation.
--- NOTE | 2022-03-03 06:24 | P.PN ---
Progress Note - Text Progress Note Date: 03/03/22 Patient doing well. Denies paresthesia. Denies headache. Pain controlled with medication. Back - epidural site c/d A/P POD#1 s/p w/ epidural duramorph - doing well - encourage ambulation
[2022-03-03 06:47] LABS: Basophils # (A) 0.1 k/uL (0-0.2); Basophils % (A) 0 %; Eosinophils % (A) 0 %; HCT 33.1 % (34.0-46.0); HGB 10.9 gm/dL (11.4-16.0); Lymphocytes # (A) 1.9 k/uL (1.0-4.8); Lymphocytes % (A) 10 %; MCHC 32.8 g/dL (31.0-37.0); MCV 94.7 fL (80.0-100.0); Mean Platelet Volume 8.6; Monocytes % (A) 6 %; Neutrophils # (A) 14.7 k/uL (1.3-7.7); Neutrophils % (A) 82 %; Platelet Count 284 k/uL (150-450); RDW 13.6 % (11.5-15.5); WBC 18.1 k/uL (3.8-10.6)
[2022-03-03] MEDS: ACETAMINOPHEN TAB 500 MG TAB PO SCH ×4 (08:21→18:35)
[2022-03-03] MEDS: LACTATED RINGERS 1,000 ML IV SCH (08:21)
[2022-03-03] MEDS: ACETAMINOPHEN IV (For NPO) 1,000 MG in EMPTY BAG 1 BAG IVPB SCH ×2 (08:22→12:32)
[2022-03-03] MEDS: IBUPROFEN 600 MG TAB PO SCH ×4 (08:22→22:06)
[2022-03-03] MEDS: LORATADINE 10 MG TAB PO SCH (08:56)
[2022-03-03] MEDS: SENNOSIDES-DOCUSATE SODIUM 1 EACH TAB PO SCH ×2 (08:56→21:22)
[2022-03-03] MEDS: PRENATAL VIT-IRON-FOLIC ACID 1 EACH TABLET PO SCH (08:56)
--- NOTE | 2022-03-03 09:02 | P.PNOBGPC ---
Subjective - Subjective Principal diagnosis: Status post primary section postoperative day #1 Interval history: Patient is doing okay. She did have Duramorph in her epidural and also had a FACILITY ATTENDANT pump that was started last night. She states it does help. She is trying to pump her breast milk. She has not ambulated yet. She denies any flatus or bowel movement yet. She is tolerating liquids at this time. Patient reports: Reports appetite normal, Reports pain well controlled : other (In level I nursery) Objective - Vital Signs Latest vital signs: Vital Signs Temp Pulse Resp BP Pulse Ox 03/03/22 04:00 98.4 F 114 H 16 122/67 97 03/03/22 01:23 111 H 16 102/54 03/03/22 00:53 115 H 16 112/58 03/03/22 00:23 117 H 16 105/54 97 03/03/22 00:08 118 H 16 139/58 97 03/02/22 23:53 98.5 F 115 H 16 119/59 97 03/02/22 23:38 99.3 F 117 H 16 127/63 97 03/02/22 23:23 98.5 F 120 H 16 120/55 97 Intake and Output 03/02/22 03/03/22 03/03/22 22:59 06:59 14:59 Output Total 664 Balance -664 Output: Urine 200 Estimated Blood Loss 464 - Exam Extremities: Present: normal. Absent: tenderness Abdomen: Present: normal appearance, soft (Faint bowel sounds 4), tenderness (Mild). Absent: distention Incision: Present: normal, dry, intact. Absent: erythematous Uterus: Present: normal, firm, tenderness (Mild) - Labs Labs: Abnormal Lab Results - Last 24 Hours (Table) 03/03/22 Range/Units 05:59 WBC 18.1 H (3.8-10.6) k/uL RBC 3.50 L (3.80-5.40) m/uL Hgb 10.9 L (11.4-16.0) gm/dL Hct 33.1 L (34.0-46.0) % Neutrophils # 14.7 H (1.3-7.7) k/uL Assessment and Plan Assessment: Status post primary low transverse section postoperative day #1 (1) 40 weeks gestation of Current Visit: No Status: Acute Code(s): Z3A.40 - 40 WEEKS GESTATION OF SNOMED Code(s): 40823227 Plan: Continue with postoperative and care today. Will discontinue FACILITY ATTENDANT pump and switched oral pain medications. Patient is encouraged to ambulate. Will discontinue Pizano this morning.
[2022-03-03] MEDS: KETOROLAC 15 MG/ML 1 ML VIAL IVP SCH ×4 (10:04→22:03)
[2022-03-04] MEDS: ACETAMINOPHEN TAB 500 MG TAB PO SCH ×4 (01:17→22:09)
[2022-03-04] MEDS: IBUPROFEN 600 MG TAB PO SCH ×3 (04:22→18:54)
[2022-03-04 07:03] LABS: Basophils % (A) 0 %; Eosinophils # (A) 0.5 k/uL (0-0.7); Eosinophils % (A) 4 %; HCT 30.7 % (34.0-46.0); HGB 10.1 gm/dL (11.4-16.0); Lymphocytes # (A) 2.7 k/uL (1.0-4.8); Lymphocytes % (A) 20 %; MCH 30.8 pg (25.0-35.0); MCV 93.4 fL (80.0-100.0); Mean Platelet Volume 8.8; Monocytes # (A) 0.8 k/uL (0-1.0); Monocytes % (A) 6 %; Neutrophils # (A) 9.5 k/uL (1.3-7.7); Neutrophils % (A) 69 %; Platelet Count 257 k/uL (150-450); RBC 3.28 m/uL (3.80-5.40); RDW 13.3 % (11.5-15.5); WBC 13.7 k/uL (3.8-10.6)
[2022-03-04] MEDS: SENNOSIDES-DOCUSATE SODIUM 1 EACH TAB PO SCH ×2 (07:50→20:53)
--- NOTE | 2022-03-04 09:50 | P.PNOBGPC ---
Subjective - Subjective Principal diagnosis: Status post repeat section postoperative day #2 Interval history: Patient is doing well. She is ambulating. She is passing flatus but no bowel movement yet. Her pain is well-controlled. She is pumping her breast milk. Lochia is minimal. Patient reports: Reports appetite normal, Reports voiding normally, Reports pain well controlled, Reports ambulating normally [place]: other (In level I nursery) Objective - Vital Signs Latest vital signs: Vital Signs Temp Pulse Resp BP Pulse Ox 03/04/22 08:00 97.8 F 97 18 112/72 03/04/22 00:00 97.8 F 97 18 107/62 97 03/03/22 20:00 97.9 F 95 16 103/64 97 03/03/22 16:00 98.2 F 99 16 96/62 99 03/03/22 12:00 98.3 F 106 H 17 115/70 97 Intake and Output 03/03/22 03/04/22 03/04/22 22:59 06:59 14:59 Intake Total 1000 Output Total 1300 Balance -1300 1000 Intake: Oral 1000 Output: Urine 1300 Other: # Voids 1 3 2 - Exam Extremities: Present: normal. Absent: tenderness, edema Abdomen: Present: normal appearance, soft. Absent: distention, tenderness Incision: Present: normal, dry, intact. Absent: erythematous Uterus: Present: normal, firm. Absent: tenderness - Labs Labs: Abnormal Lab Results - Last 24 Hours (Table) 03/04/22 Range/Units 06:10 WBC 13.7 H (3.8-10.6) k/uL RBC 3.28 L (3.80-5.40) m/uL Hgb 10.1 L (11.4-16.0) gm/dL Hct 30.7 L (34.0-46.0) % Neutrophils # 9.5 H (1.3-7.7) k/uL Assessment and Plan Assessment: Status post primary low transverse section postoperative day #2 (1) 40 weeks gestation of Current Visit: No Status: Acute Code(s): Z3A.40 - 40 WEEKS GESTATION OF SNOMED Code(s): 21434612 Plan: Continue with postoperative and care. Patient encouraged to ambulate. Diet as tolerated.
[2022-03-04] MEDS: LORATADINE 10 MG TAB PO SCH (12:27)
[2022-03-04] MEDS: PRENATAL VIT-IRON-FOLIC ACID 1 EACH TABLET PO SCH (12:27)
[2022-03-04] MEDS: SIMETHICONE 80 MG CHEWABLE PO PRN ×2 (14:10→18:53)
[2022-03-05] MEDS: IBUPROFEN 600 MG TAB PO SCH ×5 (01:04→19:29)
[2022-03-05] MEDS: ACETAMINOPHEN TAB 500 MG TAB PO SCH ×5 (04:48→23:07)
[2022-03-05] MEDS: LORATADINE 10 MG TAB PO SCH (08:05)
[2022-03-05] MEDS: SENNOSIDES-DOCUSATE SODIUM 1 EACH TAB PO SCH (08:06)
--- NOTE | 2022-03-05 08:45 | P.PNOBGPC ---
Subjective - Subjective Principal diagnosis: Status post primary postoperative day #3 Interval history: Patient is doing okay. She is ambulating. She is passing flatus and bowel movement. Her pain is fairly well controlled. Baby is is still in level I nursery on a bili blanket. She is still pumping her breast milk. Patient reports: Reports appetite normal, Reports voiding normally, Reports pain well controlled, Reports ambulating normally [place]: other (In level I nursery) Objective - Vital Signs Latest vital signs: Vital Signs Temp Pulse Resp BP Pulse Ox 03/05/22 08:00 98.0 F 108 H 16 106/63 98 03/05/22 00:00 98.5 F 104 H 17 90/49 03/04/22 16:00 98.3 F 100 18 121/77 100 Intake and Output 03/04/22 03/05/22 03/05/22 22:59 06:59 14:59 Other: # Voids 2 2 1 - Exam Extremities: Present: edema (Trace). Absent: tenderness Abdomen: Present: normal appearance, soft (Positive bowel sounds 4). Absent: distention, tenderness Incision: Present: normal, dry, intact. Absent: erythematous Uterus: Present: normal, firm. Absent: tenderness Assessment and Plan Assessment: Status post primary low transverse section postoperative day #3 (1) 40 weeks gestation of Current Visit: No Status: Acute Code(s): Z3A.40 - 40 WEEKS GESTATION OF SNOMED Code(s): 23593699 Plan: Continue with postoperative and care. Anticipate discharge home tomorrow.
[2022-03-05] MEDS: PRENATAL VIT-IRON-FOLIC ACID 1 EACH TABLET PO SCH (10:54)
[2022-03-06] MEDS: SENNOSIDES-DOCUSATE SODIUM 1 EACH TAB PO SCH ×2 (00:53→08:32)
[2022-03-06] MEDS: IBUPROFEN 600 MG TAB PO SCH ×2 (02:12→09:42)
[2022-03-06] MEDS: ACETAMINOPHEN TAB 500 MG TAB PO SCH ×2 (06:27→12:38)
[2022-03-06 08:31] VITALS: BP 128/81; PULSE 81; RESP 18; TEMP 97.6
[2022-03-06] MEDS: PRENATAL VIT-IRON-FOLIC ACID 1 EACH TABLET PO SCH (09:42)
[2022-03-06] MEDS: LORATADINE 10 MG TAB PO SCH (09:42)
--- NOTE | 2022-03-06 11:11 | P.DS ---
Providers Date of admission: 03/02/22 05:59 Expected date of discharge: 03/06/22 Attending physician: Dee Wright Primary care physician: Stated None - Discharge Diagnosis(es) (1) 40 weeks gestation of Current Visit: No Status: Acute Hospital Course: This is a 26-year-old female 2 para 0 at 40-6/7 weeks who presents to labor and delivery for induction of labor. She underwent oxytocin induction of labor and progressed to complete dilation and pushed for over 2 hours and was unable to bring the 's head to a crown. She underwent a primary low transverse section on 03/02/2022 and delivered a viable male infant with scores of 6 at 1 minute 8 at 5 minutes and 9 at 10 minutes and infant weight of 8 lbs. 14 oz. Her postoperative and course have been essentially uncomplicated. She is passing flatus and bowel movement now. Her pain is fairly well controlled with ibuprofen and Tylenol. She is pumping her breast milk. Baby is in level I nursery. She has been seen by manager social media. Vital signs are stable. Abdomen is soft with positive bowel sounds 4. Incision is clean dry and intact with марина in place. Extremities show negative Homans. Impression is status post primary low transverse section postoperative day #4. Plan is to discharge home today. Routine postoperative and instructions are given. [place] will be removed and Steri-Strips placed prior to discharge. She is given a prescription for ibuprofen. She will also be given a prescription for a breast pump. She is advised to call the office if she has any further questions or concerns prior to her appointment time. She is advised follow-up in the office in 1 week for a postoperative check and in 6 weeks for check. Procedures: Oxytocin induction of labor Primary low transverse section on 03/02/2022 Patient Condition at Discharge: Stable Plan - Discharge Summary New Discharge Prescriptions: New Ibuprofen [Motrin] 600 mg PO Q6H #60 tab Continue Fexofenadine HCl [Crys Allergy] 180 mg PO DAILY Pnv No.95/Ferrous Fum/Folic AC [ Multivitamin Tablet] 1 each PO DAILY Discharge Medication List Pnv No.95/Ferrous Fum/Folic AC [ Multivitamin Tablet] 1 each PO DAILY 10/06/21 [History] Fexofenadine HCl [Crys Allergy] 180 mg PO DAILY 02/04/22 [History] Ibuprofen [Motrin] 600 mg PO Q6H #60 tab 03/06/22 [Rx] Follow up Appointment(s)/Referral(s): Dee Wright DO [Doctor of Osteopathic Medicine] - 04/15/22 3:30 pm (Post op appoinment 03/11/22 @2:15 PM) Activity/Diet/Wound Care/Special Instructions: Instructions 1. Do not begin any exercise program for 3 weeks. 2. Do not resume sexual relations for 3 weeks or longer if uncomfortable. 3. You may take tub baths or showers at any time. 4. You may use tampons if desired after 3 weeks. 5. Keep the area of episiotomy (stitches) clean and dry. 6. If you are not nursing, wear a good fitting, supportive bra during the day and limit fluid intake for at least 1 week to prevent breast engorgement. 7. Call the office, [phone], within the next week to make appointment for your 6 week checkup if it has not already been made. 8. Report any of the following occurrences to the doctor promptly: a. Heavy, excessive bleeding b. Chills, fever c. Burning or frequency of urination d. Pain or redness and breasts if nursing e. Increasing pain or swelling in episiotomy (stitches). In addition to the above instructions, the following additional should be followed: 1. No heavy lifting or straining (exercising) until after 6 week checkup. 2. Keep abdominal incision clean and dry: You may wear a dressing if more comfortable. 3. Make office appointment for 10 days after going home or as instructed by her doctor. Discharge Disposition: HOME SELF-CARE
== END 2022-03-06 14:10 | disposition home or self-care (01) | DRG 788 ==
LOC: 4FBP 05:59
PROVIDERS: ADMIT Obstetrics & Gynecology; ATTEND Obstetrics & Gynecology
PROC: 0JH83VZ Insertion of Infusion Pump into Abdomen Subcutaneous Tissue and Fascia, Percutaneous Approach (ICD-10-PCS; 2022-03-02)
PROC: 3E033VJ Introduction of Other Hormone into Peripheral Vein, Percutaneous Approach (ICD-10-PCS; 2022-03-02)
PROC: 4A0HXCZ Measurement of Products of Conception, Cardiac Rate, External Approach (ICD-10-PCS; 2022-03-02)
PROC: 10D00Z1 Extraction of Products of Conception, Low, Open Approach (ICD-10-PCS; principal; 2022-03-02 22:36)
DX: O32.4XX0 Maternal care for high head at term, not applicable or unspecified (principal); F31.9 Bipolar disorder, unspecified; O61.0 Failed medical induction of labor; F43.10 Post-traumatic stress disorder, unspecified; O90.2 Hematoma of obstetric wound; O75.81 Maternal exhaustion complicating labor and delivery; J45.909 Unspecified asthma, uncomplicated; O99.62 Diseases of the digestive system complicating childbirth; O48.0 Post-term pregnancy; K21.9 Gastro-esophageal reflux disease without esophagitis; O99.344 Other mental disorders complicating childbirth; O99.52 Diseases of the respiratory system complicating childbirth; Z37.0 Single live birth; Z3A.40 40 weeks gestation of pregnancy; Z87.891 Personal history of nicotine dependence; Z88.6 Allergy status to analgesic agent; Z88.8 Allergy status to other drugs, medicaments and biological substances; Z91.011 Allergy to milk products
CPT/HCPCS: 85025; 86850; 86900; 86901

== ENCOUNTER 2022-07-09 14:30 | Emergency (ER) | payer OTHER ==
[2022-07-09 14:34] VITALS: TEMP 97.1
[2022-07-09] MEDS ORDERED: CIPROFLOXACIN-DEXAMETH 0.3-0.1% DROPS 7.5 ML BTL LEFT EAR STA (16:36)
[2022-07-09] MEDS ORDERED: IBUPROFEN 800 MG TAB PO STA (16:37)
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
[2022-07-09 17:06] VITALS: BP 121/79; PULSE 99; RESP 18
== END 2022-07-09 17:32 | disposition home or self-care (01) ==
LOC: EC 14:30
DX: H60.92 Unspecified otitis externa, left ear (principal); J45.909 Unspecified asthma, uncomplicated; F90.9 Attention-deficit hyperactivity disorder, unspecified type; F41.9 Anxiety disorder, unspecified; F31.9 Bipolar disorder, unspecified; Z87.891 Personal history of nicotine dependence; Z88.6 Allergy status to analgesic agent; Z91.011 Allergy to milk products
CPT/HCPCS: 99283

== ENCOUNTER → 2024-04-03 | Outpatient (CLI) | payer OTHER ==
--- NOTE | 2024-04-03 14:53 | XR ---
EXAMINATION TYPE: XR femur LT DATE OF EXAM: 04/03/2024 2:42 PM CLINICAL INDICATION: Female, 28 years old with history of M79.652 L FEMUR; [facility] COMPARISON: None TECHNIQUE: XR femur LT examined in Frontal and lateral projections. FINDINGS: No evidence of acute osseous pathology, joint dislocation, or soft tissue swelling Fixation hardware in the left femur appears intact. IUD reduction of the pelvis. IMPRESSION: 1. No acute osseous pathology. 2. Fixation hardware appears intact. 3. IUD in place.
== END | disposition home or self-care (01) ==
LOC: RADXRMAIN 14:18
PROVIDERS: ATTEND Family Medicine
DX: M79.652 Pain in left thigh